=== PATIENT | female | born 1950 | race Caucasian/White ===

== ENCOUNTER 2017-08-21 16:21 | Emergency (ER) | payer MEDICARE ==
[2014-01-09 12:54] VITALS: Wt 74.8 kg
[~2017-08-21 16:21] MED LIST: ACAM333T6 PO; ACYC800T99 PO; AMLO-104 PO; AMLO-96 PO; AMO500 PO; AMOX500T10 PO; ASP325 PO; ASPI-1441 PO; ASPI-1471 PO; ASPI-757 PO; ASPI324T37 PO; ATE50 PO; ATEN-1 PO; ATEN100T93; ATEN100T93 PO; AZI250 PO; BACDS PO; CEP250 PO; CEP500 PO; CHLO500T PO; CIP500 PO; CIPR-214 PO; CIPR-344 PO; CIT20 PO; CITA-128 PO; CITA-156 PO; CLI150 PO; CLOT15CR62 TP; CYCL10TA29 PO; DOC100 PO; FAMO-1 PO; FLU45SYR25 IM ONLY; FLUC100T39 PO; FOLI-68 PO; GABA-549 PO; GOLYTE PO; HCTZ25 PO; HYD2 PO; HYDR-2952 PO; HYDR-2954 PO; HYDR-2966 PO; HYDR-3083 PO; HYDR-385 PO; HYDR-4240 PO; HYDR-4309 PO; HYDR25CA13 PO; HYDR25CA83 PO; IBU800 PO; IBUP-1618 PO; IBUP-56 PO; KET10 PO; LEV500 PO; LEVO250T37 PO; LINA145C PO; LISI-362 PO; LISI30TA49 PO; LOR10/325 PO; LOR5 PO; LOR5/325 PO; LOR75 PO; MELA1TAB27 PO; MORS15 PO; MULT-1335 PO; MULT-1367 PO; MULT-1381 PO; MULT-806 PO; MULT-885 PO; MULT1CAP41 PO; NAP250 PO; NITR0.4T3 SL; NYST15CR33 TP; NYST15PO4 TP; NYST1POW24 TP; OMEP-114 PO; OMEP-218 PO; OND4 PO; ONDA-153 SL; ONDA-2 PO; ONDA4TAB PO; ONDA4TAB97 PO; ORP100 PO; OXY10 PO; OXYC-489 PO; OXYC-689 PO; OXYC-865 PO; OXYC-869 PO; OXYC-944 PO; OXYC1TAB54 PO; OXYIR PO; PAN20 PO; PAN40 PO; PANT40SU3 PO; PEN250L PO; PENI-22 PO; PER PO; PHEN-530 PO; PHENA100 PO; PNEI IJ; POTA20TA PO; POTA25TA28 PO; PRAZ1CAP25 PO; PRAZ1CAP26 PO; PRE10 PO; PRE50 PO; PRO25 PO; PROM-100 PO; PROM-110 PO; PROM12.546 PO; PROM25S PR; RANI-325 PO; SERT-1 PO; SUC1 PO; SUCR1ORA13 PO; SULF-170 PO; SULF-198 PO; TAMS0.4C70 PO; THERA M PLUS T1 EACH PO; THIA100T55 PO; THIA100T62 PO; TIZA-128 PO; TIZA4CAP3 PO; TOBDOO OD; TRA50 PO; TRAM-420 PO; TRAM-627 PO; TRAM100T21 PO; TRAZ-133 PO; TRAZ-156 PO; TRAZ150T61 PO; TRAZ150T8 PO; TRAZ50 PO; VALA100062 PO; WARF-12 PO; WARF-18 PO; WARF4TAB47 PO; ZIA10 PO; ZOL5 PO; [UNRECOGNIZED DRUG - CODE] IV; [UNRECOGNIZED DRUG - CODE] PO; oxygen
[2017-08-21 16:30] VITALS: BP 148/79
[2017-08-21] MEDS ORDERED: ATEN-1 PO (16:33)
--- NOTE | 2017-08-21 16:35 | ER Report ---
History and Physical Time Seen By MD: 16:31 HPI/ROS CHIEF COMPLAINT: Rash HISTORY OF PRESENT ILLNESS: 67-year-old female frequent visitor to the emergency department returns with a complaint of right inguinal rash and soreness no fever chills or sweats nausea vomiting diarrhea or additional complaints noted REVIEW OF SYSTEMS: Respiratory: No cough, no dyspnea. Cardiovascular: No chest pain, no palpitations. Gastrointestinal: No vomiting, no abdominal pain. Musculoskeletal: No back pain. Remainder of the 14 system rev: Yes Allergies: Coded Allergies: No Known Drug Allergies (Unverified , 02/27/17) Home Meds Active Scripts Lisinopril (LISINOPRIL) 30 Mg Tablet, 1 TAB PO QDAY, #30 TAB 0 Refills Prov:JARON MORENO MD 07/31/17 Tramadol Hcl (ULTRAM) 50 Mg Tablet, 1 TAB PO TID, #90 TAB 5 Refills Prov:JARON MORENO MD 07/31/17 Hydrochlorothiazide (HYDROCHLOROTHIAZIDE) 25 Mg Tablet, 1 TAB PO QDAY, #90 TAB 3 Refills Prov:JARON MORENO MD 07/31/17 Reported Medications Aspirin (ASPIR 81) 81 Mg Tablet.dr, 81 MG PO QDAY, TAB 02/27/17 Reviewed Nurses Notes: Yes Old Medical Records Reviewed: Yes Hx Smoking: Yes (2-3 CIGS A DAY TRYING TO STOP ON THE PATCH) Smoking Status: Current: Every Day Smoker Exposure to Second Hand Smoke?: No Hx Substance Use Disorder: No Hx Alcohol Use: No Physical Exam General appearance: Alert no distress. Respiratory: Chest is non tender, lungs are clear to auscultation. Cardiac: Regular rate and rhythm [ ] Skin patient has an obvious candidal infection infection to the right inguinal area no sign of abscess DIFFERENTIAL DIAGNOSIS: After history and physical exam differential diagnosis was considered for candidal infection Medical Decision Making ED Course/Re-evaluation ED Course ED clinical course medical decision-making patient with an obvious candidal infection to the right inguinal we'll prescribe nystatin cream primary care follow-up Decision to Disposition Date: Aug 21, 2017 Decision to Disposition Time: 16:32 Depart Departure Impression: Primary Impression: Candidiasis Condition: Improved Disposition: HOME OR SELF-CARE Referrals: JARON MORENO MD (PCP) 5 Days Patient Instructions: Kirsten Albicans Antigen (Into the skin) ANGELIQUE SHORT MD Aug 21, 2017 16:35
== END 2017-08-21 16:40 | disposition home or self-care (01) ==
LOC: ER 16:39
DX: B37.2 Candidiasis of skin and nail (principal)
CPT/HCPCS: 99283

== ENCOUNTER → 2017-09-05 | Outpatient (CLI) | payer MEDICARE ==
[2014-01-09 12:54] VITALS: BMI 28.9
--- NOTE | 2017-09-05 13:53 | RADIOLOGY IMAGING REPORT ---
FACILITY: [facility] - [place] PATIENT NAME: Shadia Strauss : 1950 MR: [id number] V: [id number] EXAM DATE: ORDERING PHYSICIAN: JARON MORENO TECHNOLOGIST: Location: [facility] [place] Patient: Shadia Strauss : 1950 Visit/Account:[id number] Date of Sevice: 09/05/2017 DEXA Scan Clinical history: Postmenopausal estrogen deficiency. Comparison: None available. LUMBAR SPINE: The bone mineral density (BMD) measured from L1-L4 correlates with a Z-score 0.3 and a T-score of 1.2 which is osteopenia as defined by the World Health Organization. The corresponding risk of fracture in the lumbar spine is 2-3 times increased compared with a young adult reference population. HIP: Bone mineral density (BMD) measured in the Left total hip region correlates with a Z-score -0.1 and a T-score of right is 1.3 which is osteopenia as defined by the World Health Organization. The corres ponding risk of fracture in the hip is 2-3 times increased compared with a young adult reference popu [facility]. T score left femoral neck -1.8 Bone mineral density (BMD) measured in the Femoral Neck region measures 0.788 g/cm2. Impression: 1. Lumbar spine: Osteopenia. 2. Left Hip: Osteopenia. 3. Femoral Neck: Bone Mineral Density is 0.788 g/cm2 The next DEXA scan of this patient should include the following sites: L1-L4 and the left hip. FRAX? WHO Fracture Risk Assessment Tool link: <http://www.shef.ac.uk/FRAX/tool.jsp?locationValue=9> PLEASE NOTE: 1) The World Health Organization defines low BMD as follows: T-score Normal > -1 Osteopenia < -1 and > -2.5 Osteoporosis < -2.5 without fractures Established osteoporosis < -2.5 with fractures 2) In general, you may wish to consider: Diagnosis Treatment Follow-up DEXA Normal BMD Prevention 2-3 years Osteopenia Prevention/therapy 1-2 years Osteoporosis Therapy Yearly 3) Fracture risk estimated from the T-score is more accurate for vertebral fractures (often spontane ous) than for hip fractures. Report Dictated By: Dianelys Cruz MD at 09/05/2017 1:48 PM Report E-Signed By: Dianelys Cruz MD at 09/05/2017 1:49 PM WSN:[email or web address]
--- NOTE | 2017-09-06 09:33 | RADIOLOGY IMAGING REPORT ---
FACILITY: [facility] - [place] PATIENT NAME: DEBBI BURRELL : [id number] MR: [id number] V: [id number] EXAM DATE: ORDERING PHYSICIAN: JARON MORENO TECHNOLOGIST: Letty Mendoza EXAMINATION:TWO-DIMENSIONAL ECHOCARDIOGRAPH REASON:HISTORY OF AORTIC REGURGITATION. 2D Measurements (normal values in centimeters) LV endLV endRV endVent.LV PostAorticLeftPercent DiastolicSystolicDiastolicSeptumWallRootAtriumShortening (3.5-5.7)(0.9-2.6)(0.6-1.1)(0.6-1.1)(2.0-3.7)(1.9-4.0)(25-35%) Not [id number]% STROKE VOLUME: 31 mL ESTIMATED EJECTION FRACTION:49% PARASTERNAL LONG AXIS: Overall left ventricular function appears to be slightly decreased. There is some generalized hypokinesis but no akinesis was noted. The right ventricle appears to contract normally and the TAPSE is measured at 2.0 which is within normal ranges. The patient could possibly be in a bundle branch block. Color examination of the aortic valve revealed some aortic insufficiency. Color examination of the mitral valve revealed a trace of mitral insufficiency present. There is also a trace of tricuspid insufficiency present. PARASTERNAL SHORT AXIS: Overall left ventricular function again appears to be normal and chamber sizes are normal. Aortic valve is trileaflet in configuration with some aortic insufficiency present. Trace of pulmonic and tricuspid insufficiency is also noted. APICAL FOUR AND TWO CHAMBER: Left ventricular ejection fraction again is somewhat decreased. There is an area of akinesis along the basal septal wall. Color examination of the aortic valve revealed some aortic insufficiency. Aortic valve area was measured within normal range at 1.8 cm2 with mean pressure gradient across the valve of 7 mmHg and a dimensionless index of 0.7. Mitral valve area measured within normal range at 2.1 cm2. The left atrial and right atrial volumes are measured within normal ranges at 26 and 21 mL/m2 respectively. Trace amount of mitral insufficiency is noted. Tricuspid regurgitation V-max is measured at 2.54 m/sec with a trace of tricuspid insufficiency present. Also appears to be an area of akinesis at the apex of the left ventricle. Some hypokinesis along the inferior posterior wall. SUBCOSTAL VIEW: No pericardial effusion was noted. No atrial septal or ventricular septal defects were appreciated. Doppler examination of the mitral valve in diastole does reveal the A wave greater than the E wave. Aortic insufficiency pressure halftime is 547 msec. to a low of 463 msec. IVC is normal in size. OVERALL IMPRESSION: 1. Mildly decreased left ventricular ejection fraction of 49%. There is some generalized hypokinesis but an area of akinesis along the basilar portion of the interventricular septum as well as the apex. 2. A grade 1/4 decrease in diastolic function. 3. The right ventricle is normal in size and appears to contract normally. 4. The patient could possibly be in a bundle branch block. 5. A trileaflet aortic valve with no aortic stenosis and a moderate amount of aortic insufficiency present. 6. There is a trace amount of mitral, tricuspid and pulmonic insufficiency with estimated right ventricular systolic pressure within normal range at 29 mmHg. 7. In comparison to the examination done on 10/09/2013, ejection fraction is approximately the same. The aortic valve area is not changed and the aortic insufficiency is not significantly changed. The right ventricular systolic pressure has significantly decreased from 53 mmHg to 29 mmHg which is now within normal ranges. Dictated by: Chris Duran M.D. on 09/05/2017 at 17:36 Transcribed by: MONICA on 09/05/2017 at 19:23 Approved by: Chris Duran M.D. on 09/06/2017 at 9:32 [facility]
--- NOTE | 2017-09-06 12:24 | RADIOLOGY IMAGING REPORT ---
FACILITY: [facility] PATIENT NAME: DEBBI BURRELL : [id number] MR: [id number] V: [id number] EXAM DATE: ORDERING PHYSICIAN: JARON MORENO TECHNOLOGIST: Mari English PROCEDURE:BILATERAL DIGITAL SCREENING MAMMOGRAM WITH CAD ASSISTED INTERPRETATION AND 3D BREAST TOMOSYNTHESIS. COMPARISON:Prior mammograms dated 06/15/16. INDICATIONS:BREAST CANCER SCREENING. FINDINGS: A small amount of fibroglandular tissue is seen throughout the breasts. The parenchymal pattern has remained stable when allowing for difference in mammographic technique and patient positioning. There is no evidence of malignant appearing mass, malignant appearing calcification or other secondary sign of malignancy in either breast. DIAGNOSTIC CATEGORY 1--NEGATIVE. RECOMMENDATIONS: ROUTINE MAMMOGRAM AND CLINICAL EVALUATION. IMPRESSION: Bi-RADS 1: No significant abnormality is seen. Images were reviewed with R2CAD and 3D breast tomosynthesis. Dictated by: Dianelys Cruz M.D. on 09/05/2017 at 17:01 Transcribed by: MONICA on 09/05/2017 at 19:12 Approved by: Dianelys Cruz M.D. on 09/06/2017 at 12:22 [facility]
== END ==
LOC: MAMO 01:57
PROVIDERS: ATTEND Emergency Medicine
DX: Z13.820 Encounter for screening for osteoporosis (principal); Z12.31 Encounter for screening mammogram for malignant neoplasm of breast; Z78.0 Asymptomatic menopausal state; M85.89 Other specified disorders of bone density and structure, multiple sites; I51.89 Other ill-defined heart diseases; I35.1 Nonrheumatic aortic (valve) insufficiency; I34.0 Nonrheumatic mitral (valve) insufficiency; I37.1 Nonrheumatic pulmonary valve insufficiency; I07.1 Rheumatic tricuspid insufficiency
CPT/HCPCS: 77063; 77067; 77080; 93306

== ENCOUNTER → 2017-10-02 | Outpatient (CLI) | payer MEDICARE ==
[2014-01-09 12:54] VITALS: BMI 28.9
[~2017-10-02] MED LIST changes: +PNEU0.5D3 IM; -WARF-18 PO; +WARF5TAB23 PO
== END ==
LOC: LAB 10:12
PROVIDERS: ATTEND Emergency Medicine
DX: I10 Essential (primary) hypertension (principal); M85.80 Other specified disorders of bone density and structure, unspecified site
CPT/HCPCS: 36415; 82306; 82465; 83718; 84478

== ENCOUNTER 2017-10-17 20:37 | Emergency (ER) | payer MEDICARE ==
[2014-01-09 12:54] VITALS: Wt 70.3 kg
--- NOTE | 2017-10-17 20:40 | ER Report ---
History and Physical Time Seen By MD: 20:40 HPI/ROS CHIEF COMPLAINT: Flu symptoms, cough, weakness HISTORY OF PRESENT ILLNESS: 67-year-old female presents to the ER complaining of weakness and persistent cough. She's been able to stop coughing the last 24 hours. She's been sick for 4-5 days with flu symptoms. Patient's concerned he has she developed some sharp chest pain with coughing. She also notes a sore throat from coughing. Patient notes nausea but no vomiting. She denies productive cough or fever. REVIEW OF SYSTEMS: Respiratory: As above Cardiovascular: No chest pain, no palpitations. Gastrointestinal: No vomiting, no abdominal pain. Musculoskeletal: No back pain. Allergies: Coded Allergies: No Known Drug Allergies (Unverified , 02/27/17) Home Meds Active Scripts Promethazine HCl/Codeine (Promethazine-Codeine Syrup) 6.25 Mg-10 Mg/5 Ml Syrup, 5-10 ML PO Q4H Y for pain or cough suppression, #120 Prov:JENNIFER REYNOLDS DO 10/17/17 Cefuroxime Axetil (CEFUROXIME) 250 Mg Tablet, 250 MG PO BID for infection, #14 TAB Prov:JENNIFER REYNOLDS DO 10/17/17 Lisinopril (LISINOPRIL) 30 Mg Tablet, 1 TAB PO QDAY, #90 TAB 0 Refills Prov:JARON MORENO MD 08/31/17 Tramadol Hcl (ULTRAM) 50 Mg Tablet, 1 TAB PO TID, #90 TAB 5 Refills Prov:JARON MORENO MD 07/31/17 Hydrochlorothiazide (HYDROCHLOROTHIAZIDE) 25 Mg Tablet, 1 TAB PO QDAY, #90 TAB 3 Refills Prov:JARON MORENO MD 07/31/17 Reported Medications Atenolol (ATENOLOL) 50 Mg Tablet, 1 TAB PO BID, TAB 08/21/17 Aspirin (ASPIR 81) 81 Mg Tablet.dr, 81 MG PO QDAY, TAB 02/27/17 Past Medical/Surgical History Past Medical History Cardiovascular: Reports hx of: cardiac arrhythmias edema hypertension Gastrointestinal: Reports hx of: GERD Musculoskeletal: Reports hx of: fibromyalgia Past Surgical History Gastrointestinal: Reports hx of: cholecystectomy Gynecologic: Reports hx of: hysterectomy (age 29) Musculoskeletal: Reports hx of: spinal surgery (Back surgery in 1978) Reviewed Nurses Notes: Yes Old Medical Records Reviewed: Yes Hx Smoking: Yes (2-3 CIGS A DAY TRYING TO STOP ON THE PATCH) Smoking Status: Current: Every Day Smoker Exposure to Second Hand Smoke?: No Hx Substance Use Disorder: No Hx Alcohol Use: No Constitutional Vital Sign - Last 24 Hours 10/17/17 10/17/17 10/17/17 10/17/17 20:43 20:45 21:00 21:10 Temp 98.0 Pulse 144 145 135 Resp 19 B/P (MAP) 153/103 Pulse Ox 92 92 87 90 O2 Delivery Room Air Room Air 10/17/17 10/17/17 10/17/17 10/17/17 21:10 21:14 21:15 21:30 Pulse 140 125 125 Resp 30 30 B/P (MAP) 140/108 (119) Pulse Ox 87 10/17/17 10/17/17 10/17/17 10/17/17 21:45 22:00 22:23 22:23 Pulse 120 112 Resp 14 B/P (MAP) 138/99 (112) 145/81 (102) 145/81 (102) Pulse Ox 88 87 O2 Delivery Room Air 10/17/17 10/17/17 10/17/17 10/17/17 22:26 22:30 22:45 23:00 Pulse 112 101 99 Resp 14 B/P (MAP) 132/79 (96) 146/79 (101) Pulse Ox 94 95 95 O2 Delivery Nasal Cannula O2 Flow Rate 2.0 2 10/17/17 23:30 Pulse 98 Resp 20 B/P (MAP) 138/86 (103) Pulse Ox 89 O2 Delivery Room Air Physical Exam General Appearance: The patient is alert, has no immediate need for airway protection and no current signs of toxicity. Vital signs stable, afebrile, mild tachycardia, pulse ox normal HEENT: Pupils equal and round no injection. TMs normal, oropharynx with redness , no exudate Respiratory: Chest is non tender, lungs are clear to auscultation., Expiratory wheezing, Cardiac: regular rate and rhythm Gastrointestinal: Abdomen is soft and non tender, no masses, bowel sounds normal. Musculoskeletal: Neck: Neck is supple and non tender. Extremities have full range of motion and are non tender. Skin: No rashes or lesions. DIFFERENTIAL DIAGNOSIS: After history and physical exam differential diagnosis was considered for adult fever including but not limited to viral syndromes including influenza, urinary tract infection, pneumonia and sepsis. Medical Decision Making Data Points Result Diagram: 10/17/17213310/17/172133 Laboratory Hematology Test 10/17/17 20:41 10/17/17 21:34 10/17/17 21:53 Influenza Virus Type A (PCR) Negative (NEGATIVE) Influenza Virus Type B (PCR) Positive (NEGATIVE) Red Blood Count 5.08 M/uL (4.17-5.56) Mean Corpuscular Volume 90.9 fL (80.0-96.0) Mean Corpuscular Hemoglobin 31.7 pg (26.0-33.0) Mean Corpuscular Hemoglobin Concent 34.9 g/dL (32.0-36.0) Red Cell Distribution Width 14.2 % (11.5-14.5) Mean Platelet Volume 9.0 fL (7.2-11.1) Neutrophils (%) (Auto) 46.8 % (39.4-72.5) Lymphocytes (%) (Auto) 40.6 % (17.6-49.6) Monocytes (%) (Auto) 11.1 % (4.1-12.4) Eosinophils (%) (Auto) 0.4 % (0.4-6.7) Basophils (%) (Auto) 1.1 % (0.3-1.4) Nucleated RBC Relative Count (auto) 0.1 /100WBC Neutrophils # (Auto) 3.9 K/uL (2.0-7.4) Lymphocytes # (Auto) 3.4 K/uL (1.3-3.6) Monocytes # (Auto) 0.9 K/uL (0.3-1.0) Eosinophils # (Auto) 0.0 K/uL (0.0-0.5) Basophils # (Auto) 0.1 K/uL (0.0-0.1) Nucleated RBC Absolute Count (auto) 0.01 K/uL Erythrocyte Sedimentation Rate 30 mm/HOUR (0-30) Sodium Level 133 mmol/L (137-145) Potassium Level 4.5 mmol/L (3.5-5.0) Chloride Level 98 mmol/L (98-107) Carbon Dioxide Level 15 mmol/L (22-31) Blood Urea Nitrogen 34 mg/dl (7-18) Creatinine 1.20 mg/dl (0.52-1.04) Glomerular Filtration Rate Calc 44.8 Random Glucose 98 mg/dl (75-110) Lactate 1.7 mmol/L (0.7-2.1) Calcium Level 9.5 mg/dl (8.4-10.2) Total Bilirubin 0.7 mg/dl (0.2-1.3) Aspartate Amino Transf (AST/SGOT) 43 U/L (0-35) Alanine Aminotransferase (ALT/SGPT) 49 U/L (0-56) Alkaline Phosphatase 94 U/L (0-126) Troponin I 0.017 ng/ml C-Reactive Protein 2.8 mg/dl (<1.0) Total Protein 8.1 gm/dl (6.3-8.2) Albumin 4.9 g/dl (3.5-5.0) Urine Color Yellow Urine Clarity Clear Urine pH 5.0 pH (4.8-9.5) Urine Specific [place] 1.025 Urine Protein 30 mg/dL (NEGATIVE) Urine Glucose (UA) Negative mg/dL (NEGATIVE) Urine Ketones 20 mg/dL (NEGATIVE) Urine Blood Negative (NEGATIVE) Urine Nitrite Negative (NEGATIVE) Urine Bilirubin Negative (NEGATIVE) Urine Urobilinogen Negative mg/dL (0.2-1.9) Urine Leukocyte Esterase Negative (NEGATIVE) Urine RBC <1 /HPF (0-2/HPF) Urine WBC 1 /HPF (0-5/HPF) Urine Squamous Epithelial Cells Moderate /LPF (</=FEW) Urine Bacteria Negative /HPF (NONE-FEW) Urine Hyaline Casts Few /LPF (NONE-FEW) Urine Mucus None /HPF (NONE-FEW) Chemistry Test 10/17/17 20:41 10/17/17 21:34 10/17/17 21:53 Influenza Virus Type A (PCR) Negative (NEGATIVE) Influenza Virus Type B (PCR) Positive (NEGATIVE) White Blood Count 8.3 k/uL (4.5-11.0) Red Blood Count 5.08 M/uL (4.17-5.56) Hemoglobin 16.1 g/dL (12.0-16.0) Hematocrit 46.2 % (34.0-47.0) Mean Corpuscular Volume 90.9 fL (80.0-96.0) Mean Corpuscular Hemoglobin 31.7 pg (26.0-33.0) Mean Corpuscular Hemoglobin Concent 34.9 g/dL (32.0-36.0) Red Cell Distribution Width 14.2 % (11.5-14.5) Platelet Count 298 K/uL (150-450) Mean Platelet Volume 9.0 fL (7.2-11.1) Neutrophils (%) (Auto) 46.8 % (39.4-72.5) Lymphocytes (%) (Auto) 40.6 % (17.6-49.6) Monocytes (%) (Auto) 11.1 % (4.1-12.4) Eosinophils (%) (Auto) 0.4 % (0.4-6.7) Basophils (%) (Auto) 1.1 % (0.3-1.4) Nucleated RBC Relative Count (auto) 0.1 /100WBC Neutrophils # (Auto) 3.9 K/uL (2.0-7.4) Lymphocytes # (Auto) 3.4 K/uL (1.3-3.6) Monocytes # (Auto) 0.9 K/uL (0.3-1.0) Eosinophils # (Auto) 0.0 K/uL (0.0-0.5) Basophils # (Auto) 0.1 K/uL (0.0-0.1) Nucleated RBC Absolute Count (auto) 0.01 K/uL Erythrocyte Sedimentation Rate 30 mm/HOUR (0-30) Glomerular Filtration Rate Calc 44.8 Lactate 1.7 mmol/L (0.7-2.1) Calcium Level 9.5 mg/dl (8.4-10.2) Total Bilirubin 0.7 mg/dl (0.2-1.3) Aspartate Amino Transf (AST/SGOT) 43 U/L (0-35) Alanine Aminotransferase (ALT/SGPT) 49 U/L (0-56) Alkaline Phosphatase 94 U/L (0-126) Troponin I 0.017 ng/ml C-Reactive Protein 2.8 mg/dl (<1.0) Total Protein 8.1 gm/dl (6.3-8.2) Albumin 4.9 g/dl (3.5-5.0) Urine Color Yellow Urine Clarity Clear Urine pH 5.0 pH (4.8-9.5) Urine Specific [place] 1.025 Urine Protein 30 mg/dL (NEGATIVE) Urine Glucose (UA) Negative mg/dL (NEGATIVE) Urine Ketones 20 mg/dL (NEGATIVE) Urine Blood Negative (NEGATIVE) Urine Nitrite Negative (NEGATIVE) Urine Bilirubin Negative (NEGATIVE) Urine Urobilinogen Negative mg/dL (0.2-1.9) Urine Leukocyte Esterase Negative (NEGATIVE) Urine RBC <1 /HPF (0-2/HPF) Urine WBC 1 /HPF (0-5/HPF) Urine Squamous Epithelial Cells Moderate /LPF (</=FEW) Urine Bacteria Negative /HPF (NONE-FEW) Urine Hyaline Casts Few /LPF (NONE-FEW) Urine Mucus None /HPF (NONE-FEW) Urinalysis Test 10/17/17 21:53 Urine Color Yellow Urine Clarity Clear Urine pH 5.0 pH (4.8-9.5) Urine Specific [place] 1.025 Urine Protein 30 mg/dL (NEGATIVE) Urine Glucose (UA) Negative mg/dL (NEGATIVE) Urine Ketones 20 mg/dL (NEGATIVE) Urine Blood Negative (NEGATIVE) Urine Nitrite Negative (NEGATIVE) Urine Bilirubin Negative (NEGATIVE) Urine Urobilinogen Negative mg/dL (0.2-1.9) Urine Leukocyte Esterase Negative (NEGATIVE) Urine RBC <1 /HPF (0-2/HPF) Urine WBC 1 /HPF (0-5/HPF) Urine Squamous Epithelial Cells Moderate /LPF (</=FEW) Urine Bacteria Negative /HPF (NONE-FEW) Urine Hyaline Casts Few /LPF (NONE-FEW) Urine Mucus None /HPF (NONE-FEW) EKG/Imaging EKG Interpretation 12 lead EK Rhythm: normal sinus rhythm [place]: Left axis deviation QRS: Wide QRS consistent with left bundle branch block pattern ST segments: normal, comparison to previous EKG dated 09/01/16, no significant change Imaging X-ray: Two-view chest x-ray was obtained. I viewed the images myself on the PACS system. My interpretation of the images is: No infiltrate, no effusion, normal mediastinum., Comparison to previous x-ray 09/01/16, no significant change. The radiologist interpretation had no clinically significant variation from this interpretation. ED Course/Re-evaluation Clinical Indication for ER IV: Hydration, IV Access ED Course Patient was admitted to an examination room. H&P was done. The differential diagnoses was considered. Patient with flu symptoms. They'll likely developing comp kidney pneumonia. Diagnostic x-rays were ordered. Diagnostic studies were ordered. Patient's white blood cell count was normal. Her H&H was stable. Her chest x-ray showed no obvious infiltrate. Her laboratory studies showed gross dehydration. She was hydrated with 1 L of normal saline. She was given Solu-Medrol and a DuoNeb. She reports her breathing is much improved but still coughing significantly. She was given Robitussin AC which suppressed her cough well. Patient felt much improved after hydration. Patient be discharged home on Phenergan with codeine, and Ceftin to prevent pneumonia. Patient was advised a low threshold return to the ER for any worsening. Otherwise follow-up with primary care if unimproved in 3-5 days. Decision to Disposition Date: Oct 17, 2017 Decision to Disposition Time: 22:31 Depart Departure Latest Vital Signs Vital Signs Date Time Temp Pulse Resp B/P (MAP) Pulse Ox O2 Delivery O2 Flow Rate FiO2 10/17/17 23:30 98 20 138/86 (103) 89 Room Air 10/17/17 23:00 2 10/17/17 20:43 98.0 Impression: Primary Impression: Influenza B Additional Impressions: COPD exacerbation Acute bronchitis Dehydration Condition: Improved Disposition: HOME OR SELF-CARE Referrals: JARON MORENO MD (PCP) New Scripts Promethazine HCl/Codeine (Promethazine-Codeine Syrup) 6.25 Mg-10 Mg/5 Ml Syrup 5-10 ML PO Q4H Y for pain or cough suppression, #120 Prov: JENNIFER REYNOLDS DO 10/17/17 Cefuroxime Axetil (CEFUROXIME) 250 Mg Tablet 250 MG PO BID for infection, #14 TAB Prov: JENNIFER REYNOLDS DO 10/17/17 Patient Instructions: Acute Bronchitis (ED), Influenza (ED) Additional Instructions: Take ibuprofen 200 mg 3 tablets 3 times a day with food Drink plenty of fluids Use prescription cough medicine, some pressure cough as needed Take antibiotic twice daily for one week to prevent pneumonia Follow-up with your primary care doctor if unimproved in 3-5 days Problem Qualifiers Additional Impressions: Acute bronchitis Bronchitis organism: unspecified organism Qualified Codes: J20.9 - Acute bronchitis, unspecified JENINFER REYNOLDS DO Oct 17, 2017 20:40
[2017-10-17] MEDS ORDERED: IBUPROFEN 600 MG TAB PO ONE (20:50)
[2017-10-17] MEDS ORDERED: NS(*) 0.9% 1000 ML BAG 1,000 ML IV ONE (20:53)
[2017-10-17] MEDS ORDERED: ALBUTEROL/IPRATROPIUM 3 ML NEB NEB ONE (20:55)
[2017-10-17] MEDS ORDERED: ONDANSETRON 4 MG/2 ML VIAL IVP ONE (20:55)
[2017-10-17] MEDS ORDERED: methylPREDNIS SUCC 125 MG/2ML IVP ONE (20:55)
[2017-10-17 21:43] LABS: PLATELET COUNT, AUTOMATED 298 K/uL (150-450)
[2017-10-17] MEDS ORDERED: guaiFENesin/CODEINE 5 ML UDBTL PO ONE (21:45)
--- NOTE | 2017-10-17 22:42 | RADIOLOGY IMAGING REPORT ---
FACILITY: [facility] PATIENT NAME: Shadia Strauss : 1950 MR: [id number] V: [id number] EXAM DATE: ORDERING PHYSICIAN: JENNIFER REYNOLDS TECHNOLOGIST: Location: [facility] [place] Patient: Shadia Strauss : 1950 Visit/Account:[id number] Date of Sevice: 10/17/2017 CHEST PA AND LATERAL 10/17/2017 8:53 PM. INDICATION: FEVER COMPARISON: 09/01/2016 radiographs, 01/03/2017 CT. FINDINGS: Lungs are well-expanded. The lungs are clear. No pneumothorax or pleural effusion. Pulmo nary vasculature is unremarkable. Heart size is normal. Cholecystectomy clips. IMPRESSION: No acute cardiopulmonary abnormality. Report Dictated By: Anthony Porter MD at 10/17/2017 10:37 PM Report E-Signed By: Anthony Porter MD at 10/17/2017 10:38 PM WSN:[email or web address]
[2017-10-17] MEDS ORDERED: CODE118S5 PO (22:51)
[2017-10-17] MEDS ORDERED: CEFU250T11 PO (22:51)
[2017-10-17] MEDS ORDERED: CEFDINIR 300 MG CAP PO ONE (22:55)
[2017-10-17] MEDS ORDERED: PROMETH/COD SYRP 6.25-10MG/5ML PO ONE (22:55)
[2017-10-17 23:30] VITALS: BP 138/86
--- NOTE | 2017-10-17 23:53 | EKG ---
FACILITY: [facility] - [place] PATIENT NAME: DEBBI BURRELL : [id number] MR: [id number] V: [id number] EXAM DATE: ORDERING PHYSICIAN: JENNIFER REYNOLDS TECHNOLOGIST: MARCIE Test Reason : CP Blood Pressure : / mmHG Vent. Rate : 133 BPM Atrial Rate : 133 BPM P-R Int : 120 ms QRS Dur : 136 ms QT Int : 342 ms P-R-T Axes : 000 -36 097 degrees QTc Int : 509 ms Sinus tachycardia Left axis deviation Left bundle branch block Abnormal ECG When compared with ECG of 01-SEP-2016 11:59, No significant change was found Confirmed by BALJEET CAMEJO ([id number]) on 10/18/2017 6:23:04 AM Referred By: Confirmed By:BALJEET CAMEJO
== END 2017-10-17 23:37 | disposition home or self-care (01) ==
LOC: ER 20:45
DX: J11.1 Influenza due to unidentified influenza virus with other respiratory manifestations (principal); J20.9 Acute bronchitis, unspecified; J44.1 Chronic obstructive pulmonary disease with (acute) exacerbation; E86.0 Dehydration
CPT/HCPCS: 36415; 71046; 81001; 83605; 84484; 85025; 85651; 86140; 87040; 87502; 93005; 94640; 96361; 96374; 96375; 99284; A9270; J2405; J2930; J7030; J7620; 82040; 82247; 82310; 82374; 82435; 82565; 82947; 84075; 84132; 84155; 84295; 84450; 84460; 84520

== ENCOUNTER → 2017-11-16 | Outpatient (CLI) | payer MEDICARE ==
[2014-01-09 12:54] VITALS: BMI 28.9
[~2017-11-16] MED LIST changes: +ATOR40TA24 PO; +CEFU250T11 PO; +CODE118S5 PO; +REGADENOSON 0.4 MG/5 ML SYR ONE
--- NOTE | 2017-11-16 16:29 | RADIOLOGY IMAGING REPORT ---
[place] [facility] [place] NAME: Shadia Strauss : 1950 MR: [id number] V: [id number] EXAM DATE: ORDERING PHYSICIAN: WILLIAN BAILEY TECHNOLOGIST: Location: [facility] - [place] Patient: Shadia Strauss : 1950 Visit/Account:[id number] Date of Sevice: 11/16/2017 EXAMINATION: Single isotope SPECT imaging with regadenoson infusion and gated SPECT imaging. DATE OF EXAMINATION: November 16, 2017. DATE OF INTERPRETATION: November 16, 2017. REQUESTING PHYSICIAN: WILLIAN BAILEY. INDICATION: The patient is a 67-year-old female evaluated for dyspnea, abnormal ECG demonstrating le ft bundle branch block. PROCEDURE: After informed consent the patient received an intravenous injection of 11.5 mCi of Tc-99 m sestamibi followed at an appropriate time interval by rest imaging. The patient then subsequently received an intravenous infusion of 0.4 mg of regadenoson per protocol without complication. Resting heart rate was 69 bpm with a peak heart rate of 113 bpm. Blood pressure at rest was 154 / 92 and fo llowing infusion was 151 / 84. Baseline EKG demonstrates sinus rhythm. There were no diagnostic EKG changes of ischemia following infusion. She developed a rate-related left bundle-branch block during monitoring. Symptoms were nonspecific. The patient then received an intravenous injection of 29.5 m Ci of Tc-99m sestamibi followed by stress imaging. RAW DATA: Examination of the summed raw data revealed a fair quality study. Mild breast attenuation is present. MYOCARDIAL PERFUSION: The tomographic images demonstrate a mild mid to distal anteroseptal defect wh ich improves post stress and most likely represents breast attenuation artifact. No areas of infarct or ischemia are seen.. GATED IMAGES: The gated images demonstrate normal regional wall motion and thickening, LVEF 67%. IMPRESSION: 1. Nondiagnostic Lexiscan stress ECG 2. Probably normal myocardial perfusion scan. No definite areas of infarct or ischemia seen. 3. Normal LV systolic function; LVEF 67%. Report Dictated By: Marcin Lozano MD at 11/16/2017 4:21 PM Report E-Signed By: Marcin Lozano MD at 11/16/2017 4:26 PM WSN:[id number]
--- NOTE | 2017-11-16 16:40 | RT STRESS TEST REPORT ---
FACILITY: [facility] - [place] PATIENT NAME: DEBBI BURRELL : [id number] MR: [id number] V: [id number] EXAM DATE: ORDERING PHYSICIAN: WILLIAN BAILEY TECHNOLOGIST: Shaunna Acquisition Time: 2017-11-16 14:19:48 Total Exercise Time: 00:01:00 Test Indications: Dyspnea Medications: SEE NUCLEAR MED SHEET Protocol: LEXISCAN Max HR: 113 BPM 73% of Pred: 153 BPM Max BP: 154/092 mmHG Max Work Load: 1.0 METS Confirmed by SAMI EDWARDS ([id number]) on 11/16/2017 4:40:04 PM Referred By: Overread By: SAMI EDWARDS
== END ==
LOC: NUC 01:27
PROVIDERS: ATTEND Internal Medicine Cardiovascular Disease
DX: I44.7 Left bundle-branch block, unspecified (principal)
CPT/HCPCS: 78452; 93017; A9500; J2785

== ENCOUNTER 2018-03-18 22:00 | Emergency (ER) | payer MEDICARE ==
[2014-01-09 12:54] VITALS: Wt 70.5 kg
[~2018-03-18 22:00] MED LIST changes: -REGADENOSON 0.4 MG/5 ML SYR ONE; -TRAZ-156 PO; +TRAZ50TA34 PO
[2018-03-18 22:08] VITALS: BP 138/76
--- NOTE | 2018-03-18 22:14 | ER Report ---
History and Physical Time Seen By MD: 22:13 Hx. of Stated Complaint: PAIN IN RIGHT KNEE THAT STARTED TODAY. DIFFICULTY WALKING. DOESN'T REMEMBER HURTING IT HPI/ROS CHIEF COMPLAINT: knee pain HISTORY OF PRESENT ILLNESS: This is a 68 year old female. She has had knee pain , started a couple of days ago, worsened today. No injury noted. Pain even with light touch or small movement. Can move, but increases pain. Normal sensation in the leg. Has had gout in the remote past. No rashes. Allergies: Coded Allergies: No Known Drug Allergies (Unverified , 03/18/18) Home Meds Active Scripts Hydrocodone Bit/Acetaminophen (HYDROCODON-ACETAMINOPHEN 5-325) 1 Each Tablet, 1 EACH PO Q4H Y for PAIN, #8 TAB 0 Refills Prov:DANDRE HO MD 03/18/18 Indomethacin (INDOMETHACIN) 25 Mg Capsule, 25 MG PO DIRECTED, #28 CAPSULE 0 Refills Take 2 tablets 3 times a day for 3 days, then decrease to 1 tablet 3 times a day for 3 days, then stop. Take with food. Prov:DANDRE HO MD 03/18/18 Atenolol (ATENOLOL) 50 Mg Tablet, 1 TAB PO BID, #60 TAB 0 Refills Please call and schedule an annual wellness and labs with Dr. Doe at [phone] for further refills. Prov:JARON DOE MD 03/02/18 Tramadol Hcl (ULTRAM) 50 Mg Tablet, 1 TAB PO TID, #90 TAB 5 Refills Prov:JARON DOE MD 02/09/18 Lisinopril (LISINOPRIL) 30 Mg Tablet, 1 TAB PO QDAY, #90 TAB 4 Refills Prov:JARON DOE MD 12/01/17 Hydrochlorothiazide (HYDROCHLOROTHIAZIDE) 25 Mg Tablet, 1 TAB PO QDAY, #90 TAB 3 Refills Prov:JARON DOE MD 07/31/17 Reported Medications Aspirin (ASPIR 81) 81 Mg Tablet.dr, 81 MG PO QDAY, TAB 02/27/17 Discontinued Scripts Atorvastatin Calcium (LIPITOR) 40 Mg Tablet, 1 TAB PO QDAY, #30 TAB 11 Refills Prov:AJRON DOE MD 11/02/17 Reviewed Nurses Notes: Yes Hx Smoking: Yes (2-3 CIGS A DAY TRYING TO STOP ON THE PATCH) Smoking Status: Current: Every Day Smoker Exposure to Second Hand Smoke?: No Hx Substance Use Disorder: No Hx Alcohol Use: No Constitutional Vital Sign - Last 24 Hours 03/18/18 22:08 Temp 98.0 Pulse 80 Resp 14 B/P (MAP) 138/76 Pulse Ox 94 O2 Delivery Room Air Physical Exam General Appearance: The patient is alert. Some acute distress due to the pain. Respiratory: Breathing easily and unlabored. Cardiovascular: Regular rate and rhythm. Normal capillary refill. Neurological: Alert and oriented x3. Normal sensation in leg and foot. Skin: Warm and dry. Slight warmth over the knee compared to surrounding tissues. Musculoskeletal: Range of motion is intact, but with pain. No deformities noted. DIFFERENTIAL DIAGNOSIS: After history and physical exam, differential diagnosis was considered for knee pain that could be inflammatory such as gout, or blood clot or infectious. Medical Decision Making Data Points Result Diagram: 03/18/18223903/18/18 2240 Laboratory Hematology Test 03/18/18 22:40 Red Blood Count 4.88 M/uL (4.17-5.56) Mean Corpuscular Volume 91.8 fL (80.0-96.0) Mean Corpuscular Hemoglobin 31.8 pg (26.0-33.0) Mean Corpuscular Hemoglobin Concent 34.6 g/dL (32.0-36.0) Red Cell Distribution Width 13.4 % (11.5-14.5) Mean Platelet Volume 8.4 fL (7.2-11.1) Neutrophils (%) (Auto) 56.0 % (39.4-72.5) Lymphocytes (%) (Auto) 31.6 % (17.6-49.6) Monocytes (%) (Auto) 9.8 % (4.1-12.4) Eosinophils (%) (Auto) 1.9 % (0.4-6.7) Basophils (%) (Auto) 0.7 % (0.3-1.4) Nucleated RBC Relative Count (auto) 0.1 /100WBC Neutrophils # (Auto) 6.0 K/uL (2.0-7.4) Lymphocytes # (Auto) 3.4 K/uL (1.3-3.6) Monocytes # (Auto) 1.0 K/uL (0.3-1.0) Eosinophils # (Auto) 0.2 K/uL (0.0-0.5) Basophils # (Auto) 0.1 K/uL (0.0-0.1) Nucleated RBC Absolute Count (auto) 0.01 K/uL Erythrocyte Sedimentation Rate 38 mm/HOUR (0-30) Sodium Level 138 mmol/L (137-145) Potassium Level 4.1 mmol/L (3.5-5.0) Chloride Level 101 mmol/L (98-107) Carbon Dioxide Level 26 mmol/L (22-31) Blood Urea Nitrogen 23 mg/dl (7-18) Creatinine 1.10 mg/dl (0.52-1.04) Glomerular Filtration Rate Calc 49.4 Random Glucose 104 mg/dl (75-110) Uric Acid 8.4 mg/dl (2.5-7.5) Calcium Level 9.4 mg/dl (8.4-10.2) Total Bilirubin 0.3 mg/dl (0.2-1.3) Aspartate Amino Transf (AST/SGOT) 24 U/L (0-35) Alanine Aminotransferase (ALT/SGPT) 26 U/L (0-56) Alkaline Phosphatase 77 U/L (0-126) C-Reactive Protein 2.2 mg/dl (<1.0) Total Protein 7.8 g/dl (6.3-8.2) Albumin 4.6 g/dl (3.5-5.0) Chemistry Test 03/18/18 22:40 White Blood Count 10.6 k/uL (4.5-11.0) Red Blood Count 4.88 M/uL (4.17-5.56) Hemoglobin 15.5 g/dL (12.0-16.0) Hematocrit 44.8 % (34.0-47.0) Mean Corpuscular Volume 91.8 fL (80.0-96.0) Mean Corpuscular Hemoglobin 31.8 pg (26.0-33.0) Mean Corpuscular Hemoglobin Concent 34.6 g/dL (32.0-36.0) Red Cell Distribution Width 13.4 % (11.5-14.5) Platelet Count 278 K/uL (150-450) Mean Platelet Volume 8.4 fL (7.2-11.1) Neutrophils (%) (Auto) 56.0 % (39.4-72.5) Lymphocytes (%) (Auto) 31.6 % (17.6-49.6) Monocytes (%) (Auto) 9.8 % (4.1-12.4) Eosinophils (%) (Auto) 1.9 % (0.4-6.7) Basophils (%) (Auto) 0.7 % (0.3-1.4) Nucleated RBC Relative Count (auto) 0.1 /100WBC Neutrophils # (Auto) 6.0 K/uL (2.0-7.4) Lymphocytes # (Auto) 3.4 K/uL (1.3-3.6) Monocytes # (Auto) 1.0 K/uL (0.3-1.0) Eosinophils # (Auto) 0.2 K/uL (0.0-0.5) Basophils # (Auto) 0.1 K/uL (0.0-0.1) Nucleated RBC Absolute Count (auto) 0.01 K/uL Erythrocyte Sedimentation Rate 38 mm/HOUR (0-30) Glomerular Filtration Rate Calc 49.4 Uric Acid 8.4 mg/dl (2.5-7.5) Calcium Level 9.4 mg/dl (8.4-10.2) Total Bilirubin 0.3 mg/dl (0.2-1.3) Aspartate Amino Transf (AST/SGOT) 24 U/L (0-35) Alanine Aminotransferase (ALT/SGPT) 26 U/L (0-56) Alkaline Phosphatase 77 U/L (0-126) C-Reactive Protein 2.2 mg/dl (<1.0) Total Protein 7.8 g/dl (6.3-8.2) Albumin 4.6 g/dl (3.5-5.0) EKG/Imaging Imaging KNEE 4 VIEW RIGHT HISTORY: Nontraumatic knee pain. COMPARISON: None. TECHNIQUE: AP, crosstable lateral, oblique, and sunrise views of the right knee. FINDINGS: There is no fracture or dislocation. There is chondrocalcinosis. There is mild medial tibiofemoral joint compartment narrowing. No joint effusion. IMPRESSION: 1. Mild degenerative changes, but no acute osseous abnormality of the right knee. 2. Chondrocalcinosis, which can be seen with CPPD. Report Dictated By: Ciarra Vadlez at 03/18/2018 11:17 PM VENOUS DOPP LOW RIGHT EXTREMIT HISTORY: knee pain, non-traumatic VENOUS DOPP LOW RIGHT EXTREMIT EXAMINATION: Unilateral lower extremity deep vein duplex Doppler ultrasound Knee pain. COMPARISON STUDIES: none FINDINGS: Grayscale compression, duplex and color Doppler interrogation of the RIGHT lower extremity deep veins from common femoral vein to proximal calf was performed. The greater saphenous vein was evaluated using similar technique. Common femoral vein negative Femoral vein negative Deep femoral vein - negative Popliteal vein negative Visualized deep calf veins negative Greater saphenous vein in the proximal thigh negative Popliteal fossa: negative IMPRESSION: 1. Negative right lower extremity for DVT Report Dictated By: Mushtaq Correa MD at 03/18/2018 11:51 PM ED Course/Re-evaluation Clinical Indication for ER IV: IV Access ED Course Patient feels a little better with Lortab 5/325. Venous ultrasound negative for DVT. X-ray negative as well. Slight elevation of CRP, ESR and uric acid consistent with Gout. Discussed this with the patient and will start Indomethacin. Decision to Disposition Date: Mar 18, 2018 Decision to Disposition Time: 23:50 Depart Departure Latest Vital Signs Vital Signs Date Time Temp Pulse Resp B/P (MAP) Pulse Ox O2 Delivery O2 Flow Rate FiO2 03/18/18 22:08 98.0 80 14 138/76 94 Room Air Impression: Primary Impression: Gout Condition: Improved Disposition: HOME OR SELF-CARE Referrals: JARON DOE MD (PCP) New Scripts Hydrocodone Bit/Acetaminophen (HYDROCODON-ACETAMINOPHEN 5-325) 1 Each Tablet 1 EACH PO Q4H Y for PAIN, #8 TAB 0 Refills Prov: DANDRE HO MD 03/18/18 Indomethacin (INDOMETHACIN) 25 Mg Capsule 25 MG PO DIRECTED, #28 CAPSULE 0 Refills Take 2 tablets 3 times a day for 3 days, then decrease to 1 tablet 3 times a day for 3 days, then stop. Take with food. Prov: DANDRE HO MD 03/18/18 Patient Instructions: Gout (ED) Additional Instructions: Take the anti-inflammatory medicine Indomethacin 25mg. Take 2 tablets 3 times a day for 3 days, then decrease to 1 tablet 3 times a day for 3 days, then stop. Take with food. You can take Lortab 5/325, one every 4 hours as needed for severe pain while the indomethacin is starting to work. Problem Qualifiers Primary Impression: Gout Gout site: knee Gout etiology: unspecified cause Chronicity: acute Laterality: right Qualified Codes: M10.9 - Gout, unspecified DANDRE HO MD Mar 18, 2018 22:14
[2018-03-18] MEDS ORDERED: APAP/HYDROCODONE 325/5 TAB PO ONE (22:20)
[2018-03-18 22:48] LABS: PLATELET COUNT, AUTOMATED 278 K/uL (150-450)
--- NOTE | 2018-03-18 23:21 | RADIOLOGY IMAGING REPORT ---
FACILITY: [facility] - [place] PATIENT NAME: Shadia Strauss : 1950 MR: [id number] V: [id number] EXAM DATE: ORDERING PHYSICIAN: DANDRE HO TECHNOLOGIST: Location: [facility] - [place] Patient: Shadia Strauss : 1950 Visit/Account:[id number] Date of Sevice: 03/18/2018 KNEE 4 VIEW RIGHT HISTORY: Nontraumatic knee pain. COMPARISON: None. TECHNIQUE: AP, crosstable lateral, oblique, and sunrise views of the right knee. FINDINGS: There is no fracture or dislocation. There is chondrocalcinosis. There is mild medial tibio femoral joint compartment narrowing. No joint effusion. IMPRESSION: 1. Mild degenerative changes, but no acute osseous abnormality of the right knee. 2. Chondrocalcinosis, which can be seen with CPPD. Report Dictated By: Ciarra Valdez at 03/18/2018 11:17 PM Report E-Signed By: Ciarra Valdez at 03/18/2018 11:19 PM WSN:[id number]
[2018-03-18] MEDS ORDERED: ACET/HYDROC 5/325MG TH ER ONLY 2 TAB/BOTTLE PO ONE (23:50)
[2018-03-18] MEDS ORDERED: INDOMETHACIN 25 MG CAP PO ONE (23:50)
[2018-03-18] MEDS ORDERED: LOR5/325 PO (23:53)
[2018-03-18] MEDS ORDERED: INDO-21 PO (23:53)
--- NOTE | 2018-03-18 23:56 | RADIOLOGY IMAGING REPORT ---
FACILITY: [facility] - [place] PATIENT NAME: Shadia Strauss : 1950 MR: [id number] V: [id number] EXAM DATE: ORDERING PHYSICIAN: DANDRE HO TECHNOLOGIST: [place] [facility] [place] Shadia Stra[place] : 1950 Visit/Account:[id number] Date of Sevice: 03/18/2018 VENOUS DOPP LOW RIGHT EXTREMIT HISTORY: knee pain, non-traumatic VENOUS DOPP LOW RIGHT EXTREMIT EXAMINATION: Unilateral lower extremity deep vein duplex Doppler ultrasound Knee pain. COMPARISON STUDIES: none FINDINGS: Grayscale compression, duplex and color Doppler interrogation of the RIGHT lower extremity deep vein s from common femoral vein to proximal calf was performed. The greater saphenous vein was evaluated u sing similar technique. Common femoral vein negative Femoral vein negative Deep femoral vein - negative Popliteal vein negative Visualized deep calf veins negative Greater saphenous vein in the proximal thigh negative Popliteal fossa: negative IMPRESSION: 1. Negative right lower extremity for DVT Report Dictated By: Mushtaq Correa MD at 03/18/2018 11:51 PM Report E-Signed By: Mushtaq Correa MD at 03/18/2018 11:52 PM WSN:[id number]
== END 2018-03-19 00:05 | disposition home or self-care (01) ==
LOC: ER 22:08
DX: M10.9 Gout, unspecified (principal)
CPT/HCPCS: 36415; 73564; 84550; 85025; 85651; 86140; 93971; 99284; A9270; 82040; 82247; 82310; 82374; 82435; 82565; 82947; 84075; 84132; 84155; 84295; 84450; 84460; 84520

== ENCOUNTER 2018-06-29 20:44 | Emergency (ER) | payer MEDICARE ==
[2014-01-09 12:54] VITALS: Wt 70.3 kg
[~2018-06-29 20:44] MED LIST changes: +AMLO-111 PO; -AMLO-96 PO; +FLU180SY11 IM; -HYDR-4309 PO; +HYDR-653 PO; +INDO-21 PO; +LISI-374 PO
--- NOTE | 2018-06-29 20:50 | ER Report ---
History and Physical Time Seen By MD: 20:49 HPI/ROS CHIEF COMPLAINT: Abdominal pain HISTORY OF PRESENT ILLNESS: Patient is a 68-year-old female who presents to the emergency department for evaluation of lower abdominal pain for 2 days. Patient states that the skin of her lower abdomen is quite tender to the touch it is red and erythematous it is wet and there is an area that is bleeding. Her episode in the past and told it was a "infection" she was given a powder and endocrine to use and the symptoms resolved. She does report some mild nausea and severe pain. She has not vomited. She is eating normally and stooling normally and denies any urinary symptoms. REVIEW OF SYSTEMS: Respiratory: No cough, no dyspnea. Cardiovascular: No chest pain, no palpitations. Gastrointestinal: No vomiting, abdominal pain Musculoskeletal: No back pain. Skin: Rash Allergies: Coded Allergies: No Known Drug Allergies (Unverified , 03/18/18) Home Meds Active Scripts Hydrocodone Bit/Acetaminophen (HYDROCODON-ACETAMINOPHEN 5-325) 1 Each Tablet, 1 EACH PO Q4-6H PRN for PAIN, #12 TAB 0 Refills TAKE ONE TABLET BY MOUTH EVERY 4-6 HOURS NEEDED FOR PAIN Prov:CYNTHIA COLE MD 06/29/18 Nystatin 100,000 Unit/Gm Top Powder (NYSTATIN 100,000 UNIT/GM TOP POWDER) 15 Gm Powder, 15 GM TP BID for 10 Days, #1 TUBE 0 Refills Prov:CYNTHIA COLE MD 06/29/18 Clotrimazole/Betamethasone Dip (CLOTRIMAZOLE-BETAMETHASONE CRM) 15 Gm Cream..g., 1 NADER TP BID for 10 Days, #1 TUBE 0 Refills Prov:CYNTHIA COLE MD 06/29/18 Atenolol (ATENOLOL) 100 Mg Tablet, 1 TAB PO QDAY, #90 TAB 3 Refills Prov:JARON MORENO MD 06/06/18 Lisinopril (LISINOPRIL) 40 Mg Tablet, 40 MG PO QDAY, #90 TAB 3 Refills Prov:JARON MORENO MD 06/06/18 Trazodone Hcl (TRAZODONE HCL) 50 Mg Tablet, 50 MG PO QHS, #90 TAB 3 Refills One to two tabs at night Prov:JARON MORENO MD 06/06/18 Reported Medications Aspirin (ASPIR 81) 81 Mg Tablet.dr, 81 MG PO QDAY, TAB 02/27/17 Discontinued Scripts Tramadol Hcl (ULTRAM) 50 Mg Tablet, 1 TAB PO TID, #90 TAB 5 Refills Prov:TIFFANIEJARON MD 02/09/18 Past Medical/Surgical History Local history for cardiac arrhythmias, hypertension, cardiomyopathy, gastroesophageal reflux disease, fibromyalgia past surgical history for cholecystectomy, hysterectomy at age 29, spinal surgery Hx Smoking: Yes (2-3 CIGS A DAY TRYING TO STOP ON THE PATCH) Smoking Status: Current: Every Day Smoker Exposure to Second Hand Smoke?: No Hx Substance Use Disorder: No Hx Alcohol Use: No Constitutional Vital Sign - Last 24 Hours 06/29/18 06/29/18 06/29/18 20:49 21:09 21:38 Temp 97.7 Pulse 83 80 73 Resp 18 18 B/P (MAP) 100/90 125/81 (96) 121/73 (89) Pulse Ox 93 94 94 O2 Delivery Room Air Room Air Room Air Physical Exam General Appearance: The patient is alert, has no immediate need for airway protection and no current signs of toxicity. Respiratory: Chest is non tender, lungs are clear to auscultation. Cardiac: regular rate and rhythm Gastrointestinal: Abdomen is soft and non tender, no masses, bowel sounds normal. Musculoskeletal: Neck: Neck is supple and non tender. Extremities have full range of motion and are non tender. Skin: No rashes or lesions. [ ] [DIFFERENTIAL DIAGNOSIS: After history and physical exam differential diagnosis was considered for] [ ] Medical Decision Making ED Course/Re-evaluation ED Course 06/29/2018 10:12:35 pm patient's "abdominal pain" seems to actually be related to a skin issue. The intertriginous space of the patient's lower abdomen has a fungal infection. This is extremely tender to the touch has a "yeast smell to it" and is what the patient was describing she has had in the past. Patient does not seem to have any intra-abdominal symptoms or pathology so I do not believe any lab work or imaging studies are necessary at this point. We will treat the patient with topical antifungals and a short course of oral pain medications and will have her follow-up with her primary care provider. Decision to Disposition Date: Jun 29, 2018 Decision to Disposition Time: 22:13 Depart Departure Latest Vital Signs Vital Signs Date Time Temp Pulse Resp B/P (MAP) Pulse Ox O2 Delivery O2 Flow Rate FiO2 06/29/18 21:38 73 121/73 (89) 94 Room Air 06/29/18 21:09 18 06/29/18 20:49 97.7 Impression: Primary Impression: Tinea corporis Condition: Improved Disposition: HOME OR SELF-CARE Referrals: JARON MORENO MD (PCP) New Scripts Hydrocodone Bit/Acetaminophen (HYDROCODON-ACETAMINOPHEN 5-325) 1 Each Tablet 1 EACH PO Q4-6H PRN for PAIN, #12 TAB 0 Refills TAKE ONE TABLET BY MOUTH EVERY 4-6 HOURS NEEDED FOR PAIN Prov: CYNTHIA COLE MD 06/29/18 Nystatin 100,000 Unit/Gm Top Powder (NYSTATIN 100,000 UNIT/GM TOP POWDER) 15 Gm Powder 15 GM TP BID for 10 Days, #1 TUBE 0 Refills Prov: CYNTHIA COLE MD 06/29/18 Clotrimazole/Betamethasone Dip (CLOTRIMAZOLE-BETAMETHASONE CRM) 15 Gm Cream..g. 1 NADER TP BID for 10 Days, #1 TUBE 0 Refills Prov: CYNTHIA COLE MD 06/29/18 Patient Instructions: Tinea Corporis (ED) Additional Instructions: Use your nystatin powder as follows: Apply immediately after you shower to the affected area which has been thoroughly dried. Then apply a 2nd application to the affected area just before you go to sleep. Use your antifungal lotion as follows: Apply to the affected area twice per day but at least 4 hours after you apply the nystatin Use your hand-held hair spring winder on cool setting to thoroughly dry the area of skin on her abdomen. Continue this process every time after you shower. And any time you feel wetness to the area. CYNTHIA COLE MD Jun 29, 2018 20:50
[2018-06-29 21:38] VITALS: BP 121/73
[2018-06-29] MEDS ORDERED: NYSTATIN 100,000 U/GM PWD 15GM TP ONE (21:40)
[2018-06-29] MEDS ORDERED: CLOT15CR64 TP (21:59)
[2018-06-29] MEDS ORDERED: NYST15PO4 TP (21:59)
[2018-06-29] MEDS ORDERED: LOR5/325 PO (22:00)
[2018-06-29] MEDS ORDERED: oxyCODONE/ACETAMIN 5/325MG TH 2 TAB/BOTTLE PO ONE (22:10)
== END 2018-06-29 22:18 | disposition home or self-care (01) ==
LOC: ER 20:51
DX: B35.4 Tinea corporis (principal)
CPT/HCPCS: 99283; A9270

== ENCOUNTER 2018-07-15 20:29 | Emergency (ER) | payer MEDICARE ==
[2014-01-09 12:54] VITALS: Wt 70.5 kg
[~2018-07-15 20:29] MED LIST changes: +CLOT15CR64 TP
[2018-07-15 20:34] VITALS: BP 179/124
--- NOTE | 2018-07-15 21:13 | ER Report ---
History and Physical Time Seen By : 21:13 Hx. of Stated Complaint: states lower abdominal area is infected. feels/looks like it did the last time she was in here for it. HPI/ROS CHIEF COMPLAINT: Stomach wall infection HISTORY OF PRESENT ILLNESS: 68-year-old female presents with a stomach wall infection. She returns after being seen several weeks ago. She was placed on antifungals. Her rash appeared to get better but then got much worse over the last few days. Tonight she is describing burning, throbbing pain in her lower abdomen. She has a large pannus which hangs down over her abdomen. She is describing 6/10 burning pain in the affected area. She notes no fever or chill s. REVIEW OF SYSTEMS: Respiratory: No cough, no dyspnea. Cardiovascular: No chest pain, no palpitations. Gastrointestinal: No vomiting, no abdominal pain. Musculoskeletal: No back pain. Allergies: Coded Allergies: No Known Drug Allergies (Unverified , 07/15/18) Home Meds Active Scripts Fluconazole (FLUCONAZOLE) 150 Mg Tab, 150 MG PO QODAY, #3 TAB Prov:JENNIFER REYNOLDS DO 07/15/18 Hydrocodone Bit/Acetaminophen (HYDROCODON-ACETAMINOPHEN 5-325) 1 Each Tablet, 1 EACH PO Q4-6H PRN for PAIN, #12 TAB 0 Refills TAKE ONE TABLET BY MOUTH EVERY 4-6 HOURS NEEDED FOR PAIN Prov:CYNTHIA COLE MD 06/29/18 Nystatin 100,000 Unit/Gm Top Powder (NYSTATIN 100,000 UNIT/GM TOP POWDER) 15 Gm Powder, 15 GM TP BID for 10 Days, #1 TUBE 0 Refills Prov:CYNTHIA COLE MD 06/29/18 Clotrimazole/Betamethasone Dip (CLOTRIMAZOLE-BETAMETHASONE CRM) 15 Gm Cream..g., 1 NADER TP BID for 10 Days, #1 TUBE 0 Refills Prov:CYNTHIA COLE MD 06/29/18 Atenolol (ATENOLOL) 100 Mg Tablet, 1 TAB PO QDAY, #90 TAB 3 Refills Prov:JARON MORENO MD 06/06/18 Lisinopril (LISINOPRIL) 40 Mg Tablet, 40 MG PO QDAY, #90 TAB 3 Refills Prov:JARON MORENO MD 06/06/18 Trazodone Hcl (TRAZODONE HCL) 50 Mg Tablet, 50 MG PO QHS, #90 TAB 3 Refills One to two tabs at night Prov:JARON MORENO MD 06/06/18 Reported Medications Aspirin (ASPIR 81) 81 Mg Tablet.dr, 81 MG PO QDAY, TAB 02/27/17 Past Medical/Surgical History Past Medical History Cardiovascular: Reports hx of: cardiac arrhythmias hypertension other CV history (cardiomyopathy) Gastrointestinal: Reports hx of: GERD other GI history (esophageal stricture) Musculoskeletal: Reports hx of: fibromyalgia Past Surgical History Gastrointestinal: Reports hx of: cholecystectomy Gynecologic: Reports hx of: hysterectomy (age 29) Musculoskeletal: Reports hx of: spinal surgery (Back surgery in 1978) Reviewed Nurses Notes: Yes Old Medical Records Reviewed: Yes Hx Smoking: Yes (2-3 CIGS A DAY TRYING TO STOP ON THE PATCH) Smoking Status: Current: Every Day Smoker Exposure to Second Hand Smoke?: No Hx Substance Use Disorder: No Hx Alcohol Use: No Constitutional Vital Sign - Last 24 Hours 07/15/18 20:34 Temp 98.1 Pulse 93 Resp 18 B/P (MAP) 179/124 Pulse Ox 91 O2 Delivery Room Air Physical Exam General Appearance: The patient is alert, has no immediate need for airway protection and no current signs of toxicity. Vital signs stable, afebrile, pulse ox normal Eyes: Pupils equal and round no injection. Respiratory: Chest is non tender, lungs are clear to auscultation. Cardiac: regular rate and rhythm Gastrointestinal: Abdomen is soft and non tender, no masses, bowel sounds normal., There is a large pannus, which is lifted up and there is gross erythema and weeping of the tissues consistent with tenia corporis/cruris Musculoskeletal: Neck: Neck is supple and non tender. Extremities have full range of motion and are non tender. Skin: No rashes or lesions. DIFFERENTIAL DIAGNOSIS: After history and physical exam differential diagnosis was considered for cellulitis, tinea cruris, tinea corporis Medical Decision Making ED Course/Re-evaluation ED Course Patient was minute to an examination room. H&P was done. Patient with extensive tinea cruris under her pannus of her abdomen. Patient seemed unaware that she needed to keep the area dry and pallor free. I advised her to place towels underneath her pannus to allow air to circulate while she is sleeping. Patient's failing topical treatment. She'll be treated with fluconazole orally, 150 mg every other day. She'll be also given topical triamcinolone cream. She is advised to use miconazole 2% topical spray. She is advised to follow-up with her primary care if unimproved in 3-5 days. Decision to Disposition Date: Jul 15, 2018 Decision to Disposition Time: 21:19 Depart Departure Latest Vital Signs Vital Signs Date Time Temp Pulse Resp B/P (MAP) Pulse Ox O2 Delivery O2 Flow Rate FiO2 07/15/18 20:34 98.1 93 18 179/124 91 Room Air Impression: Primary Impression: Tinea corporis Condition: Improved Disposition: HOME OR SELF-CARE Referrals: JARON MORENO MD (PCP) New Scripts Fluconazole (FLUCONAZOLE) 150 Mg Tab 150 MG PO QODAY, #3 TAB Prov: JENNIFRE REYNOLDS DO 07/15/18 Patient Instructions: Tinea Corporis (ED) Additional Instructions: Use miconazole 2% spray powder in the affected area Place a towel in the fold to allow some ventilation to the area and allow it to dry out You may also use Gold Sapp powder to dry the area Follow-up with your primary care in 3-5 days if unimproved JENNIFER REYNOLDS DO Jul 15, 2018 21:12
[2018-07-15] MEDS ORDERED: ACET/HYDROC 5/325MG TH ER ONLY 2 TAB/BOTTLE PO ONE (21:20)
[2018-07-15] MEDS ORDERED: TRIAMCINOLONE ACE 0.1% CR 80GM TP ONE (21:20)
[2018-07-15] MEDS ORDERED: FLUCONAZOLE 150 MG TAB PO ONE (21:20)
[2018-07-15] MEDS ORDERED: FLU150 PO (21:20)
== END 2018-07-15 21:50 | disposition home or self-care (01) ==
LOC: ER 21:27
DX: B35.4 Tinea corporis (principal)
CPT/HCPCS: 99283; A9270

== ENCOUNTER 2018-10-03 18:58 | Emergency (ER) | payer MEDICARE ==
[2014-01-09 12:54] VITALS: Wt 68.0 kg
[~2018-10-03 18:58] MED LIST changes: -AMLO-111 PO; +AMLO-125 PO; +FLU150 PO
--- NOTE | 2018-10-03 19:08 | ER Report ---
History and Physical Time Seen By MD: 19:08 Hx. of Stated Complaint: PT REPORTS FEELING VERY SICK FOR 3 DAYS NOW. PT COMPLAINT OF COUGH WITH ASSOCIATED CHEST AND BACK PAIN. HPI/ROS CHIEF COMPLAINT: Cough, body aches HISTORY OF PRESENT ILLNESS: 68-year-old female patient presents to emergency room with complaint of cough and body aches. Patient states that she's been feeling ill for the last few days but seemed to worsen today when she developed body aches. Patient states she has not had much of an appetite today, but when trying to drink plenty of fluids. She states that she has not checked her temperature, however her grandson was over today and told her that she was burning up. Patient states she's been taking ibuprofen for this. She states last time she took ibuprofen was proximally 3 hours ago. She denies having any nausea, vomiting or diarrhea. She states she doesn't feel short of breath. She states that she is having a difficult time with cough is very persistent. Patient states that she does cough up mucus. REVIEW OF SYSTEMS: Respiratory: As noted above Cardiovascular: No chest pain, no palpitations. Gastrointestinal: No vomiting, no abdominal pain. Musculoskeletal: No back pain. Allergies: Coded Allergies: No Known Drug Allergies (Unverified , 10/03/18) Home Meds Active Scripts Oseltamivir Phosphate (TAMIFLU) 75 Mg Cap, 75 MG PO BID, #10 CAP Prov:KRYSTIN WILKES 10/03/18 Promethazine HCl/Codeine (Prometh-Codein 6.25-10 mg/5 ml) 5 Ml Syrup, 1 TSP PO Q6H PRN for COUGH, #120 ML Prov:KRYSTIN WILKES 10/03/18 Tramadol Hcl (ULTRAM) 50 Mg Tablet, 1 TAB PO TID, #270 TAB 3 Refills Prov:JARON MORENO MD 09/20/18 Atenolol (ATENOLOL) 100 Mg Tablet, 1 TAB PO QDAY, #90 TAB 3 Refills Prov:JARON MORENO MD 06/06/18 Lisinopril (LISINOPRIL) 40 Mg Tablet, 40 MG PO QDAY, #90 TAB 3 Refills Prov:JARON MORENO MD 06/06/18 Trazodone Hcl (TRAZODONE HCL) 50 Mg Tablet, 50 MG PO QHS, #90 TAB 3 Refills One to two tabs at night Prov:JARON MORENO MD 06/06/18 Reported Medications Aspirin (ASPIR 81) 81 Mg Tablet.dr, 81 MG PO QDAY, TAB 02/27/17 Discontinued Scripts Fluconazole (FLUCONAZOLE) 150 Mg Tab, 150 MG PO QODAY, #3 TAB Prov:JENNIFER REYNOLDS DO 07/15/18 Hydrocodone Bit/Acetaminophen (HYDROCODON-ACETAMINOPHEN 5-325) 1 Each Tablet, 1 EACH PO Q4-6H PRN for PAIN, #12 TAB 0 Refills TAKE ONE TABLET BY MOUTH EVERY 4-6 HOURS NEEDED FOR PAIN Prov:CYNTHIA COLE MD 06/29/18 Nystatin 100,000 Unit/Gm Top Powder (NYSTATIN 100,000 UNIT/GM TOP POWDER) 15 Gm Powder, 15 GM TP BID for 10 Days, #1 TUBE 0 Refills Prov:CYNTHIA COLE MD 06/29/18 Clotrimazole/Betamethasone Dip (CLOTRIMAZOLE-BETAMETHASONE CRM) 15 Gm Cream..g., 1 NADER TP BID for 10 Days, #1 TUBE 0 Refills Prov:CYNTHIA COLE MD 06/29/18 Past Medical/Surgical History Patient has a past medical history of a bundle branch block, hypertension, pulmonary embolism, pancreatitis, gastritis, fibromyalgia, back pain, alcohol ab use. Patient has surgical history back surgery, bunion surgery, hysterectomy, bladder suspension, cholecystectomy. Patient has a family medical history of cancer. Reviewed Nurses Notes: Yes Hx Smoking: Yes (2-3 CIGS A DAY TRYING TO STOP ON THE PATCH) Smoking Status: Current: Every Day Smoker Exposure to Second Hand Smoke?: No Hx Substance Use Disorder: No Hx Alcohol Use: No Constitutional Vital Sign - Last 24 Hours 10/03/18 19:04 Temp 99.3 Pulse 142 Resp 22 B/P (MAP) 205/136 Pulse Ox 95 O2 Delivery Room Air Physical Exam General Appearance: The patient is alert, has no immediate need for airway protection and no current signs of toxicity. Respiratory: Chest is non tender, lungs are clear to auscultation. Cardiac: regular rate and rhythm Gastrointestinal: Abdomen is soft and non tender, no masses, bowel sounds normal. Musculoskeletal: Neck: Neck is supple and non tender. Extremities have full range of motion and are non tender. Skin: No rashes or lesions. DIFFERENTIAL DIAGNOSIS: After history and physical exam differential diagnosis was considered for influenza, viral syndrome, pneumonia, bronchitis. Medical Decision Making Data Points Result Diagram: 10/03/18192710/03/181927 Laboratory Hematology Test 10/03/18 19:05 10/03/18 19:28 Influenza Virus Type A (PCR) Positive (NEGATIVE) Influenza Virus Type B (PCR) Negative (NEGATIVE) Red Blood Count 5.45 M/uL (4.17-5.56) Mean Corpuscular Volume 93.7 fL (80.0-96.0) Mean Corpuscular Hemoglobin 31.8 pg (26.0-33.0) Mean Corpuscular Hemoglobin Concent 33.9 g/dL (32.0-36.0) Red Cell Distribution Width 14.5 % (11.5-14.5) Mean Platelet Volume 8.5 fL (7.2-11.1) Neutrophils (%) (Auto) 76.4 % (39.4-72.5) Lymphocytes (%) (Auto) 13.5 % (17.6-49.6) Monocytes (%) (Auto) 9.3 % (4.1-12.4) Eosinophils (%) (Auto) 0.2 % (0.4-6.7) Basophils (%) (Auto) 0.6 % (0.3-1.4) Nucleated RBC Relative Count (auto) 0.1 /100WBC Neutrophils # (Auto) 5.3 K/uL (2.0-7.4) Lymphocytes # (Auto) 0.9 K/uL (1.3-3.6) Monocytes # (Auto) 0.6 K/uL (0.3-1.0) Eosinophils # (Auto) 0.0 K/uL (0.0-0.5) Basophils # (Auto) 0.0 K/uL (0.0-0.1) Nucleated RBC Absolute Count (auto) 0.01 K/uL Sodium Level 136 mmol/L (137-145) Potassium Level 4.0 mmol/L (3.5-5.0) Chloride Level 104 mmol/L (98-107) Carbon Dioxide Level 19 mmol/L (22-31) Blood Urea Nitrogen 11 mg/dl (7-18) Creatinine 0.80 mg/dl (0.52-1.04) Glomerular Filtration Rate Calc > 60.0 Random Glucose 112 mg/dl (75-110) Calcium Level 9.5 mg/dl (8.4-10.2) Total Bilirubin 0.7 mg/dl (0.2-1.3) Aspartate Amino Transf (AST/SGOT) 32 U/L (0-35) Alanine Aminotransferase (ALT/SGPT) 22 U/L (0-56) Alkaline Phosphatase 94 U/L (0-126) Total Protein 8.4 g/dl (6.3-8.2) Albumin 5.0 g/dl (3.5-5.0) Chemistry Test 10/03/18 19:05 10/03/18 19:28 Influenza Virus Type A (PCR) Positive (NEGATIVE) Influenza Virus Type B (PCR) Negative (NEGATIVE) White Blood Count 6.9 k/uL (4.5-11.0) Red Blood Count 5.45 M/uL (4.17-5.56) Hemoglobin 17.3 g/dL (12.0-16.0) Hematocrit 51.1 % (34.0-47.0) Mean Corpuscular Volume 93.7 fL (80.0-96.0) Mean Corpuscular Hemoglobin 31.8 pg (26.0-33.0) Mean Corpuscular Hemoglobin Concent 33.9 g/dL (32.0-36.0) Red Cell Distribution Width 14.5 % (11.5-14.5) Platelet Count 249 K/uL (150-450) Mean Platelet Volume 8.5 fL (7.2-11.1) Neutrophils (%) (Auto) 76.4 % (39.4-72.5) Lymphocytes (%) (Auto) 13.5 % (17.6-49.6) Monocytes (%) (Auto) 9.3 % (4.1-12.4) Eosinophils (%) (Auto) 0.2 % (0.4-6.7) Basophils (%) (Auto) 0.6 % (0.3-1.4) Nucleated RBC Relative Count (auto) 0.1 /100WBC Neutrophils # (Auto) 5.3 K/uL (2.0-7.4) Lymphocytes # (Auto) 0.9 K/uL (1.3-3.6) Monocytes # (Auto) 0.6 K/uL (0.3-1.0) Eosinophils # (Auto) 0.0 K/uL (0.0-0.5) Basophils # (Auto) 0.0 K/uL (0.0-0.1) Nucleated RBC Absolute Count (auto) 0.01 K/uL Glomerular Filtration Rate Calc > 60.0 Calcium Level 9.5 mg/dl (8.4-10.2) Total Bilirubin 0.7 mg/dl (0.2-1.3) Aspartate Amino Transf (AST/SGOT) 32 U/L (0-35) Alanine Aminotransferase (ALT/SGPT) 22 U/L (0-56) Alkaline Phosphatase 94 U/L (0-126) Total Protein 8.4 g/dl (6.3-8.2) Albumin 5.0 g/dl (3.5-5.0) EKG/Imaging Imaging 2 VIEWS CHEST INDICATION: Cough for 3 days. Fever. COMPARISON: 10/17/2017. FINDINGS: Cardiomediastinal silhouette and pulmonary vessels within normal limits. There is no focal infiltrate or lobar consolidation. There is no pneumothorax or pleural effusion. No nodule. Upper abdomen is unremarkable. Surgical clips again seen right upper quadrant. No acute bony abnormality. Rightward convexity of the thoracic spine is stable. IMPRESSION: 1. No acute cardiopulmonary process. Report Dictated By: Aston Mixon at 10/03/2018 8:04 PM Report E-Signed By: Aston Mixon at 10/03/2018 8:05 PM ED Course/Re-evaluation ED Course Patient was admitted to an exam room, history and physical were obtained. Differential diagnoses were considered. On examination lungs are clear, heart is regular, abdomen is soft nontender. Patient is tachycardic. She does have blood pressure which is elevated. Did ask the patient should take her blood pressure medication today and she states that she had. I encouraged her to take that she's got home. A CBC, CMP, chest x-ray and influenza screen were done. CBC and CMP were unremarkable. Chest x-ray showed no acute cardiopulmonary processes. Full screen was positive for influenza A. Patient did have a flu shot this year. I discussed the findings with the patient. With everything getting significantly worse today believe today's accident started the influenza. We will go ahead and treat her with Tamiflu 75 mg twice a day 5 days. She is to follow-up with her primary care provider next week. She'll return to emergency room if condition worsens. We will also do some promethazine with codeine cough syrup to help suppress the cough. I discussed this with the patient who verbalized understanding and agreement with plan. Decision to Disposition Date: Oct 03, 2018 Decision to Disposition Time: 20:03 Depart Departure Latest Vital Signs Vital Signs Date Time Temp Pulse Resp B/P (MAP) Pulse Ox O2 Delivery O2 Flow Rate FiO2 10/03/18 19:04 99.3 142 22 205/136 95 Room Air Impression: Primary Impression: Influenza A Condition: Improved Disposition: HOME OR SELF-CARE Referrals: JARON MORENO MD (PCP) New Scripts Oseltamivir Phosphate (TAMIFLU) 75 Mg Cap 75 MG PO BID, #10 CAP Prov: KRYSTIN WILKES 10/03/18 Promethazine HCl/Codeine (Prometh-Codein 6.25-10 mg/5 ml) 5 Ml Syrup 1 TSP PO Q6H PRN for COUGH, #120 ML Prov: KRYSTIN WILKES 10/03/18 Patient Instructions: Influenza (ED) Additional Instructions: Increase fluid intake. Get plenty of rest. Take Tylenol or Ibuprofen as needed for fevers. Stay home until you are fever free for 24 hours. Return to the ER if condition worsens. Follow up with your primary care provider in the next week with any concerns. KRYSTIN WILKES Oct 03, 2018 19:08
[2018-10-03] MEDS ORDERED: PROMETH/COD SYRP 6.25-10MG/5ML PO ONE (19:15)
[2018-10-03 19:33] LABS: PLATELET COUNT, AUTOMATED 249 K/uL (150-450)
[2018-10-03 20:00] VITALS: BP 189/128
[2018-10-03] MEDS ORDERED: PROM5SYR PO (20:04)
[2018-10-03] MEDS ORDERED: OSE75 PO (20:04)
--- NOTE | 2018-10-03 20:09 | RADIOLOGY IMAGING REPORT ---
FACILITY: [facility] PATIENT NAME: Shdaia Strauss : 1950 MR: [id number] V: [id number] EXAM DATE: ORDERING PHYSICIAN: KRYSTIN WILKES TECHNOLOGIST: Location: [facility] Patient: Shadia Strauss : 1950 Visit/Account:[id number] Date of Sevice: 10/03/2018 2 VIEWS CHEST INDICATION: Cough for 3 days. Fever. COMPARISON: 10/17/2017. FINDINGS: Cardiomediastinal silhouette and pulmonary vessels within normal limits. There is no focal infiltrate or lobar consolidation. There is no pneumothorax or pleural effusion. No nodule. Upper abdomen is unremarkable. Surgical clips again seen right upper quadrant. No acute bony abnormality. Rightward convexity of the thoracic spine is stable. IMPRESSION: 1. No acute cardiopulmonary process. Report Dictated By: Aston Mixon at 10/03/2018 8:04 PM Report E-Signed By: Aston Mixon at 10/03/2018 8:05 PM WSN:[id number]
== END 2018-10-03 20:15 | disposition home or self-care (01) ==
LOC: ER 19:48
DX: J09.X2 Influenza due to identified novel influenza A virus with other respiratory manifestations (principal)
CPT/HCPCS: 36415; 71046; 85025; 87502; 99283; A9270; 82040; 82247; 82310; 82374; 82435; 82565; 82947; 84075; 84132; 84155; 84295; 84450; 84460; 84520

== ENCOUNTER → 2018-12-17 | Outpatient (CLI) | payer MEDICARE ==
[2014-01-09 12:54] VITALS: BMI 28.9
[~2018-12-17] MED LIST changes: +CLOT15CR63 TP; +OSE75 PO; +PROM5SYR PO
--- NOTE | 2018-12-17 09:02 | EKG ---
FACILITY: [facility] - [place] PATIENT NAME: DEBBI BURRELL : [id number] MR: [id number] V: [id number] EXAM DATE: ORDERING PHYSICIAN: JARON MORENO TECHNOLOGIST: LUISANA Conner Reason : Blood Pressure : / mmHG Vent. Rate : 069 BPM Atrial Rate : 069 BPM P-R Int : 188 ms QRS Dur : 146 ms QT Int : 474 ms P-R-T Axes : 067 012 097 degrees QTc Int : 507 ms Normal sinus rhythm Right atrial enlargement Left bundle branch block Abnormal ECG When compared with ECG of 17-OCT-2017 21:04, Vent. rate has decreased BY 64 BPM T wave amplitude has decreased in Inferior leads T wave inversion less evident in Lateral leads Confirmed by JARON MORENO ([id number]) on 12/18/2018 1:51:27 PM Referred By: AMMY Confirmed By:JARON MORENO
== END ==
LOC: RESP 08:36
PROVIDERS: ATTEND Emergency Medicine
DX: R94.31 Abnormal electrocardiogram [ECG] [EKG] (principal)

== ENCOUNTER 2019-01-02 01:21 | Observation (INO) | payer MEDICARE ==
[2014-01-09 12:54] VITALS: Ht 152.4 cm; Wt 78.9 kg
[~2019-01-02] VITALS: Ht 152.4 cm; Wt 78.9 kg
[2019-01-02] VITALS (12 sets, daily range): BP systolic 96–139; BP diastolic 54–90
[~2019-01-02 01:21] MED LIST changes: +AMLO-127 PO; +FAMOTIDINE 20 MG TAB PO ONE; +LIDOCAINE/SOD BICARB 8.4% SYR ID ONE; +NORMOSOL R SOLN(*) 1000 ML BAG 1,000 ML IV PRN
[2019-01-02] MEDS ORDERED: LIDOCAINE/SOD BICARB 8.4% SYR ID ONE (05:20)
[2019-01-02] MEDS ORDERED: NORMOSOL R SOLN(*) 1000 ML BAG 1,000 ML IV PRN (05:20)
[2019-01-02] MEDS ORDERED: FAMOTIDINE 20 MG TAB PO ONE (05:20)
[2019-01-02] MEDS ORDERED: cefOXitin/DEX(*) 2GM/50ML PREM 50 ML IVPB ONE (07:00)
[2019-01-02] MEDS ORDERED: MIDAZOLAM 2 MG/2 ML VIAL IVP PRN (07:30)
[2019-01-02] MEDS ORDERED: PROPOFOL EMUL(*) 10MG/ML 20 ML 20 ML ONE (07:32)
[2019-01-02] MEDS ORDERED: LIDOCAINE MPF 1% 5 ML VIAL ONE (07:32)
[2019-01-02] MEDS ORDERED: ONDANSETRON 4 MG/2 ML VIAL ONE (07:32)
[2019-01-02] MEDS ORDERED: METOCLOPRAMIDE 10 MG/2 ML SDV ONE (07:32)
[2019-01-02] MEDS ORDERED: fentaNYL CITR 100 MCG/2 ML AMP ONE ×3 (07:34→12:03)
[2019-01-02] MEDS ORDERED: DEXAMETHASONE SOD 4 MG/ML VIAL ONE (07:35)
[2019-01-02 08:27] LABS: PLATELET COUNT, AUTOMATED 279 K/uL (150-450)
[2019-01-02] MEDS ORDERED: NS(*) 0.9% 100 ML BAG 100 ML ONE (08:44)
[2019-01-02] MEDS ORDERED: ESTROGENS CONJ VAG CREAM 30 GM TUBE PV ONE (08:44)
[2019-01-02] MEDS ORDERED: VASOPRESSIN 20 UNIT/ML VIAL ONE (08:44)
[2019-01-02] MEDS ORDERED: ePHEDrine 25 MG/5 ML DISP.SYR IVP ONE (09:24)
[2019-01-02] MEDS ORDERED: ACETAMINOPHEN(*)1000 MG/100 ML 100 ML IVPB ONE (09:24)
[2019-01-02] MEDS ORDERED: DLR(*) 1000 ML BAG 1,000 ML IV PRN ×2 (10:53→11:03)
[2019-01-02] MEDS ORDERED: ONDANSETRON 4 MG/2 ML VIAL IV PRN (10:55)
[2019-01-02] MEDS ORDERED: INFLUENZA VIRUS VAC 0.5ML SYR IM ONE (10:55)
[2019-01-02] MEDS ORDERED: PROMETHAZINE 25 MG/ML 1 ML AMP IVP PRN (10:55)
[2019-01-02] MEDS ORDERED: SIMETHICONE 80 MG CHEW CHEW PRN (10:55)
[2019-01-02] MEDS ORDERED: IBUPROFEN 800 MG TAB PO PRN (10:55)
[2019-01-02] MEDS ORDERED: ZOLPIDEM TARTRATE 10 MG TAB PO PRN (10:55)
[2019-01-02] MEDS ORDERED: ACETAMINOPHEN 325 MG TAB PO PRN (10:55)
[2019-01-02] MEDS ORDERED: OXYC-865 PO (11:10)
[2019-01-02] MEDS ORDERED: DOCU-416 PO (11:10)
[2019-01-02] MEDS ORDERED: IBUP600T22 PO (11:10)
--- NOTE | 2019-01-02 11:10 | Post Operative Note ---
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
--- NOTE | 2019-01-02 11:26 | OPERATIVE REPORT 1 ---
EVENT DATE: January 02, 2019 SURGEON: Hitesh Capone MD ANESTHESIOLOGIST: Jamie Deras MD ANESTHESIA: General endotracheal. INTERNET SITE DESIGNER: EMIR Roberto PREOPERATIVE DIAGNOSES 1. Atrophic postmenopausal vaginitis. 2. Rectocele. 3. Cystocele. POSTOPERATIVE DIAGNOSES 1. Atrophic postmenopausal vaginitis. 2. Rectocele. 3. Cystocele. PROCEDURES PERFORMED 1. Anterior colporrhaphy. 2. Posterior colporrhaphy. ESTIMATED BLOOD LOSS 20 cc. FLUIDS 900 cc IV crystalloid. URINE OUTPUT Not measured. DESCRIPTION OF PROCEDURE The patient was brought to the operating room with a working IV in place in the dorsal supine position on the operating table. She was placed under general LMA anesthesia by Dr. Deras and moved to the dorsal lithotomy position. She was then prepped and draped in the usual sterile fashion. The vaginal defects were inspected. She had significant proximal anterior defect and posterior defect, although the apex of the vagina still seemed to be supported. Therefore, attention was first turned to the anterior defect in which the defect was injected with a diluted Pitressin solution and a linear incision was made along the length of the defect up to the mid urethral region and then at the vaginal cuff laterally towards the angles. This flap of vaginal mucosa was then dissected off underlying vesicovaginal fascia using sharp dissection and performed until the entire defect was exposed. A pursestring stitch of 2-0 Vicryl was then used to reduce the size of the defect followed by Edel plication. Stitches of 2-0 Vicryl along the length of the defect. Upon completion, there was an excellent reduction in this cystocele. A small amount of vaginal mucosa was trimmed away while the vaginal mucosa was then repaired with a 2-0 Vicryl in a running locking stitch. Upon completion, attention was then turned to the posterior repair. In likewise fashion, the posterior defect was palpable rectally with a more prominent defect proximal near the vaginal cuff. The entire area was infiltrated with a diluted Pitressin solution and a linear incision was made from the vaginal cuff along the length in the midline of the defect to the vaginal introitus. A dheeraj-shaped wedge resection of the perineal tissue was performed in order to perform a perineoplasty. Excess skin was trimmed away. The vaginal mucosa was dissected off underlying endopelvic fascia. This was very thin near the apex of the vagina, requiring careful dissection in that location. Upon completion, specific repair was performed in all areas where the defect was visible and then a pursestring stitch was performed to reduce the size of the defect followed by Edel plication stitches along the length of the defect. A finger was inserted into the rectum and a few site specific stitches were placed and then gloves were changed. No vaginal mucosa was trimmed away and the final repair was performed with 2-0 Vicryl in a running locking stitch along the length of the defect and recreating perineal body as is typical for a second-degree obstetrical repair. Upon completion, there was excellent reduction in both defects and reconstruction of the vaginal anatomy. There was no significant bleeding noted. Only a light amount of venous oozing. The vagina was then packed with Kerlix sponge, moistened with Premarin cream with a Olmedo catheter left indwelling. Legs were brought back to the supine position. She was awakened from general anesthesia and taken to recovery in stable condition. Sponge, lap, needle and instrument counts were all correct x3. MTDD
[2019-01-02] MEDS ORDERED: KETOROLAC 15 MG/ML VIAL IVP PRN (12:00)
[2019-01-02] MEDS ORDERED: KETOROLAC 15 MG/ML VIAL IVP SCH (12:00)
[2019-01-02] MEDS: HYDROmorphone HCL 2 MG/ML SDV ONE ×2 (12:14→12:15)
[2019-01-02] MEDS: oxyCODON/ACET (*)5/325MG (CII) 1 TAB TAB PO PRN ×3 (13:42→21:43)
[2019-01-02] MEDS: HYDROmorphone HCL 2 MG TAB PO PRN (14:04)
[2019-01-02] MEDS: FAMOTIDINE 20 MG TAB PO SCH (20:23)
[2019-01-02] MEDS: DOCUSATE CALCIUM 240 MG CAP PO SCH (20:23)
[2019-01-02] MEDS: TRIAMCINOLONE TP SCH (21:43)
[2019-01-02] MEDS: NYSTATIN TP SCH (21:43)
[2019-01-03] MEDS: oxyCODON/ACET (*)5/325MG (CII) 1 TAB TAB PO PRN ×6 (02:00→22:44)
[2019-01-03 04:15] VITALS: BP 120/70
[2019-01-03 06:18] LABS: PLATELET COUNT, AUTOMATED 277 K/uL (150-450)
[2019-01-03 07:56] VITALS: BP 119/64
--- NOTE | 2019-01-03 08:08 | OB/GYN Progress Note ---
OB Subjective Progress Notes Subjective Doing well. Pain well controlled. Has pain like cramping from the packing. GI: NEG Nausea : Voiding Well Pain: Mild OB Objective Physical Exam Vital Signs Date Time Temp Pulse Resp B/P (MAP) Pulse Ox O2 Delivery O2 Flow Rate FiO2 01/03/19 07:56 97.9 65 16 119/64 (82) 91 Room Air 01/03/19 04:15 1.0 Intake and Output 01/03/19 07:00 Intake Total 1960 ml Output Total 950 ml Balance 1010 ml Intake Oral 960 ml IV Total 1000 ml Output Urine Total 950 ml General Appearance: Alert/Awake/No Acute Distress Neurological: No Gross deficits Cardiovascular: Normal Rhythm & Peripheral Pulses Respiratory: No Respiratory Distress Abdomen: Soft, Non-Tender, Non-Distended Integumentary: Skin Intact without Lesions or Rash Psychological: Alert & Oriented X3, Appropriate Mood & Affect Result Diagram: 01/03/19 0600 01/02/19 1238 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 Packing removed. Ambulate today and expecting home later. Reviewed discharge instructions. (2) Rectocele Status: Acute VANDANA RUBIO MD January 03, 2019 08:08
--- NOTE | 2019-01-03 08:10 | Short(Outpt) Discharge Summary ---
Discharge Summary Reason for Hosp/Final Diag: (1) Cystocele Status: Acute Hospital Course & Plan: s/p A&P repair. Packing removed. Ambulate today and expecting home later. Reviewed discharge instructions. (2) Rectocele Status: Acute Departure Discharge to: Home, Self Care Discharge Instructions Home Meds Active Scripts Oxycodone Hcl/Acetaminophen (PERCOCET 5-325 MG TABLET) 1 Each Tablet, 1 EACH PO Q4-6H PRN for PAIN, #20 TAB 0 Refills TAKE 1 TABLET NEEDED FOR PAIN - NO CLOSER THAN EVERY 4-6 HOURS. Prov:DARSHAN SHEETS 01/02/19 Amlodipine Besylate (AMLODIPINE BESYLATE) 10 Mg Tablet, 1 TAB PO QDAY, #90 TAB 3 Refills Prov:JARON MORENO MD 12/31/18 Atenolol (ATENOLOL) 100 Mg Tablet, 1 TAB PO QDAY, #90 TAB 3 Refills Prov:JARON MORENO MD 06/06/18 Lisinopril (LISINOPRIL) 40 Mg Tablet, 40 MG PO QDAY, #90 TAB 3 Refills Prov:JARON MORENO MD 06/06/18 Reported Medications Tramadol Hcl (TRAMADOL HCL) 50 Mg Tablet, 50 MG PO TID PRN for PAIN, TAB 12/31/18 Aspirin (ASPIR 81) 81 Mg Tablet.dr, 81 MG PO QDAY, TAB 02/27/17 Follow up Referrals: SUPERVISING [employer]OR [employer]EL - In Two Weeks @ [facility] with VANDANA RUBIO MD Diet: Regular Activity: As Tolerated, No Heavy Lifting, No Exertion Copies to: VANDANA RUBIO MD ; VANDANA RUBIO MD January 03, 2019 08:10
[2019-01-03] MEDS: FAMOTIDINE 20 MG TAB PO SCH ×2 (10:10→21:09)
[2019-01-03] MEDS: NYSTATIN TP SCH ×2 (10:11→21:00)
[2019-01-03] MEDS: DOCUSATE CALCIUM 240 MG CAP PO SCH ×2 (10:11→21:09)
[2019-01-03] MEDS: TRIAMCINOLONE TP SCH ×2 (10:11→21:00)
[2019-01-03] MEDS: LISINOPRIL 20 MG TAB PO SCH (10:12)
[2019-01-03] MEDS: ATENOLOL 50 MG TAB PO SCH (10:13)
[2019-01-03] MEDS: amLODIPine BESYL(*) 5 MG TAB PO SCH (10:13)
[2019-01-03] MEDS ORDERED: ONDANSETRON 4 MG ODT TABDP SL PRN (12:15)
[2019-01-03] MEDS: HYDROmorphone HCL 2 MG TAB PO PRN (14:49)
[2019-01-03 16:00] VITALS: BP 122/74
[2019-01-03 20:13] VITALS: BP 140/88
[2019-01-03 22:59] VITALS: BP 112/80
[2019-01-04 03:26] VITALS: BP 135/79
[2019-01-04] MEDS: oxyCODON/ACET (*)5/325MG (CII) 1 TAB TAB PO PRN ×2 (03:28→07:36)
--- NOTE | 2019-01-04 07:43 | OB/GYN Progress Note ---
OB Subjective Progress Notes Subjective Stayed another night for pain control. Feeling better today. Wants to go home. GI: NEG Nausea : Voiding Well Pain: Mild OB Objective Physical Exam Vital Signs Date Time Temp Pulse Resp B/P (MAP) Pulse Ox O2 Delivery O2 Flow Rate FiO2 01/04/19 03:26 98.8 58 16 135/79 (97) 95 Nasal Cannula 1.0 Intake and Output 01/04/19 07:00 Intake Total 0 ml Output Total 1500 ml Balance -1500 ml Intake Oral 0 ml Output Urine Total 1500 ml # Voids 5 General Appearance: Alert/Awake/No Acute Distress Neurological: No Gross deficits Cardiovascular: Normal Rhythm & Peripheral Pulses Respiratory: No Respiratory Distress Abdomen: Soft, Non-Tender, Non-Distended Integumentary: Skin Intact without Lesions or Rash Psychological: Alert & Oriented X3, Appropriate Mood & Affect Result Diagram: 01/03/19 0600 01/02/19 1238 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
[2019-01-04] MEDS: TRIAMCINOLONE TP SCH (09:00)
[2019-01-04] MEDS: NYSTATIN TP SCH (09:00)
[2019-01-04] MEDS: FAMOTIDINE 20 MG TAB PO SCH (09:34)
[2019-01-04] MEDS: DOCUSATE CALCIUM 240 MG CAP PO SCH (09:34)
[2019-01-04] MEDS: amLODIPine BESYL(*) 5 MG TAB PO SCH (09:35)
[2019-01-04] MEDS: ATENOLOL 50 MG TAB PO SCH (09:35)
[2019-01-04] MEDS: LISINOPRIL 20 MG TAB PO SCH (09:35)
[2019-01-04 09:40] VITALS: BP 141/74
== END 2019-01-04 07:50 | disposition home or self-care (01) ==
LOC: OR 01:21 → PED 13:00
PROVIDERS: ADMIT Obstetrics & Gynecology; ATTEND Obstetrics & Gynecology
DX: N95.2 Postmenopausal atrophic vaginitis (principal); N81.6 Rectocele; N81.10 Cystocele, unspecified; I10 Essential (primary) hypertension; M79.7 Fibromyalgia; F17.210 Nicotine dependence, cigarettes, uncomplicated; Z87.440 Personal history of urinary (tract) infections; Z79.899 Other long term (current) drug therapy
CPT/HCPCS: 36415; 57260; 85025; 96372; A9270; G0378; J0131; J0694; J1100; J1170; J2001; J2250; J2405; J2704; J2765; J3010; J3490; J7050; Q0162; 82040; 82247; 82310; 82374; 82435; 82565; 82947; 84075; 84132; 84155; 84295; 84450; 84460; 84520; S0119

== ENCOUNTER 2019-01-15 23:06 | Emergency (ER) | payer MEDICARE ==
[2014-01-09 12:54] VITALS: Wt 72.6 kg
[~2019-01-15 23:06] MED LIST changes: -DOXY-179 PO; +TRAZ50TA34 PO; -TRAZ50TA52 PO
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
[2019-01-15 23:30] VITALS: BP 105/65
[2019-01-15] MEDS ORDERED: KETOROLAC 30 MG/ML VIAL IM ONE (23:40)
[2019-01-15] MEDS ORDERED: cefTRIAXone 1 GM VIAL IM ONE (23:55)
[2019-01-15] MEDS ORDERED: LIDOCAINE 1% MDV 200 MG/20 ML INJ ONE (23:55)
[2019-01-15] MEDS ORDERED: [UNRECOGNIZED DRUG - OTHER] TP SCH (23:55)
[2019-01-16] MEDS ORDERED: FLUCONAZOLE 150 MG TAB PO ONE (00:05)
[2019-01-16] MEDS ORDERED: oxyCODONE/ACETAMIN 5/325MG TH 2 TAB/BOTTLE PO ONE (00:10)
[2019-01-16] MEDS ORDERED: NYST15PO4 TP (00:11)
[2019-01-16] MEDS ORDERED: DOXY-179 PO (00:11)
[2019-01-16] MEDS ORDERED: TRAM-420 PO (00:11)
[2019-01-16] MEDS ORDERED: SULF-198 PO (00:40)
== END 2019-01-16 00:59 | disposition home or self-care (01) ==
LOC: ER 23:11
DX: N39.0 Urinary tract infection, site not specified (principal); N76.0 Acute vaginitis
CPT/HCPCS: 81001; 99283; A9270; J0696; J1885; J2001; 96372

== ENCOUNTER → 2019-01-15 | Outpatient (CLI) | payer MEDICARE ==
[2014-01-09 12:54] VITALS: BMI 28.9
[~2019-01-15] MED LIST changes: +DOCU-416 PO; +DOXY-179 PO; -FAMOTIDINE 20 MG TAB PO ONE; +IBUP600T22 PO; -LIDOCAINE/SOD BICARB 8.4% SYR ID ONE; -NORMOSOL R SOLN(*) 1000 ML BAG 1,000 ML IV PRN; -TRAZ50TA34 PO; +TRAZ50TA52 PO
== END ==
LOC: AMB 22:50
PROVIDERS: ATTEND Nurse Practitioner
DX: R10.2 Pelvic and perineal pain (principal)
CPT/HCPCS: A0425; A0429

== ENCOUNTER → 2019-02-11 | Outpatient (CLI) | payer MEDICARE ==
[2014-01-09 12:54] VITALS: BMI 28.9
[~2019-02-11] MED LIST changes: +CEPH500T7 PO; +DOXY-179 PO; +DOXY-229 PO; -TRAZ50TA34 PO; +TRAZ50TA52 PO
== END ==
LOC: LAB 15:31
PROVIDERS: ATTEND Student in an Organized Health Care Education/Training Program
DX: R10.2 Pelvic and perineal pain (principal)
CPT/HCPCS: 87070

== ENCOUNTER 2019-02-20 08:49 | Emergency (ER) | payer MEDICARE ==
[2014-01-09 12:54] VITALS: Wt 72.6 kg
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
[2019-02-20] MEDS ORDERED: IOPAMIDOL 76% 100 ML INFUS BTL 100 ML ONE ×2 (09:31→10:24)
[2019-02-20 09:46] LABS: PLATELET COUNT, AUTOMATED 278 K/uL (150-450)
[2019-02-20] MEDS ORDERED: NS(*) 0.9% 50 ML BAG 50 ML ONE (12:19)
--- NOTE | 2019-02-20 12:58 | RADIOLOGY IMAGING REPORT ---
FACILITY: [facility] [place] PATIENT NAME: Shadia Strauss : 1950 MR: [id number] V: [id number] EXAM DATE: ORDERING PHYSICIAN: ANGELIQUE SHORT TECHNOLOGIST: Location: [facility] [place] Patient: Shadia Strauss : 1950 Visit/Account:[id number] Date of Sevice: 02/20/2019 CT ABDOMEN PELVIS W/O CON HISTORY: pain TECHNIQUE: Axial images acquired through the abdomen/pelvis. Coronal and sagittal reformatting also performed. No IV contrast administered. One of the following dose optimization techniques was utili zed in the performance of this exam: Automated exposure control; adjustment of the mA and/or kV accor ding to the patient's size; or use of an iterative reconstruction technique. Specific details can b e referenced in the facility's radiology CT exam operational policy. COMPARISON: Comparison CT scan 06/20/2016 FINDINGS: Visualized lung bases: Minimal bibasilar dependent atelectasis or discoid scarring. Hepatobiliary: Normal liver. Remote cholecystectomy also seen on prior study. Spleen: Negative. Adrenals: Negative. Pancreas: Negative. Kidneys ureters and bladder: There is indistinct hyperdensities seen in the calyces of both kidneys. Urine within the bladder is hyperdense and consequently this patient has had a recent contrast study and this represents residual excreted contrast. No stones identified in the kidneys. No evidence o f obstruction. Genitalia: Remote hysterectomy. GI: Colon is unremarkable. No evidence of diverticula. The appendix is well-visualized (axial imag es [id number] series 2) and is air-filled and normal. Small bowel unremarkable. Small hiatal hernia. Vessels/spaces/nodes: Negative. Bones/soft tissues: There is multilevel degenerative disease through the lower thoracic spine involv ing T9-T10 through T12-L1 disc space narrowing.. There is mild disc space narrowing at L4-5 and L5-S 1. There is mild grade 1 spondylolisthesis at L4-5 due to extensive facet arthropathy. This is caus ing spinal canal stenosis (axial image 69 series 2). No compression fractures are seen. Additional findings: None pertinent. IMPRESSION: No acute intra-abdominal pathology is identified. Etiology of patient's pain is not identified. Remote cholecystectomy and hysterectomy. Multilevel degenerative disc disease through the lower thoracic spine and lower lumbar spine. Spinal canal stenosis L4-5 Report Dictated By: Shaheen De Anda MD at 02/20/2019 12:40 PM Report E-Signed By: Shaheen De Anda MD at 02/20/2019 12:51 PM WSN:[id number]
[2019-02-20 13:07] VITALS: BP 137/80
[2019-02-25] MEDS ORDERED: HYDR-653 PO (11:04)
== END 2019-02-20 13:09 | disposition home or self-care (01) ==
LOC: ER 09:02
DX: R10.84 Generalized abdominal pain (principal)
CPT/HCPCS: 74176; 85025; 99283; J7050; Q9967; 82040; 82247; 82310; 82374; 82435; 82565; 82947; 84075; 84132; 84155; 84295; 84450; 84460; 84520